=== PATIENT | male | born 1940 | race Caucasian/White ===

== ENCOUNTER 2021-12-21 17:36 | Inpatient (IN) | payer MEDICARE, BC, SELFPAY ==
[2021-12-21 19:41] VITALS: BP 100/55; PULSE 75; RESP 17; TEMP 37.1; O2SAT 97
[2021-12-21 19:50] VITALS: BP 100/55; PULSE 75; RESP 17; TEMP 37.1; O2SAT 97
[2021-12-21] MEDS: Lactated Ringers 1,000 ML 150 ML IV (19:55)
--- NOTE | 2021-12-21 20:28 | HPE_ITS ---
Date of service: 12/21/21 Time of Service: 20:28 Assessment and Plan Assessment and plan (1) Sepsis: Status: Acute Assessment and plan: Patient present with symptoms of systemic infection with rigors and chills and fever of 103 and subsequently had laboratory findings and vital signs consistent with sepsis including tachycardia tachypnea and leukopenia and elevated blood lactate. Presumed source is untreated E. coli UTI exacerbated by instrumentation. Patient seems to be responding to IV fluids antibiotics given to him this afternoon. We will continue high-dose Rocephin 2 g IV daily and continue IV fluids overnight. Repeat his labs in the morning including CMP and CBC. His blood lactate is already down to 2.0. I will repeat his lactate in the morning. I have ordered a procalcitonin level which is pending at this time. I have asked our medical staff to request from [facility] laboratory results of any blood and urine cultures. Qualifiers: Sepsis type: Escherichia coli Sepsis acute organ dysfunction status: with acute organ dysfunction Severe sepsis acute organ dysfunction type: acute renal failure Acute renal failure type: unspecified Severe sepsis shock status: without septic shock Qualified Code(s): A41.51 - Sepsis due to Escherichia coli [E. coli]; R65.20 - Severe sepsis without septic shock; N17.9 - Acute kidney failure, unspecified (2) KENZIE (acute kidney injury): Status: Acute Assessment and plan: Continue IV hydration with lactated Ringer's. Monitor urine output repeat CMP in the morning (3) Neutropenia: Status: Acute Assessment and plan: Secondary to sepsis. Repeat CBC with differential in the morning along with other labs. (4) Gross hematuria: Status: Acute (5) BPH loc w urin obs/LUTS: Status: Acute Assessment and plan: I have held his Flomax for now as his blood pressures have been soft. Once his blood pressures have returned to normal I will reinstitute his Flomax. Upon discharge he should follow-up with his urologist at [facility]. History of Present Illness History of Present Illness Chief Complaint: fever, chills, nausea, hematuria Narrative: 81-year-old male who reportedly has had no significant past medical history but developed UTI symptoms last week including hematuria dysuria and polyuria along with fever and chills. He had been prescribed antibiotics (I believe Cipro) but when he read the potential side effects he decided not to take them. He followed up with a urologist today and underwent cystoscopy at [facility] in [facility]. He was given a dose of ciprofloxacin perioperatively around 11 AM. He went out with his nephew to get some lunch at noon time and became nauseated and vomited and was complaining of fever and rigors. He thought he was having a reaction to the antibiotic and was driven back to the emergency department at [facility] around 1:30 PM. Upon arrival he was febrile with a temperature of 102.2 and tachycardic with a heart rate of 105 bpm and hypertensive with a blood pressure 170/89 with a pulse oximetry of 98%. His fever spiked to 103.3. His blood pressure dropped as low as 100/70 by 4 PM. Per ER notes from [facility] patient's previous urine culture grew E. coli that was pansensitive. Patient was treated with Rocephin 2 g. He was also given 1 L of IV fluids and 1 g of acetaminophen. Work-up included routine labs including blood lactate that was elevated at 6, urinalysis that demonstrated specific gravity of 1.020 and greater than 3 mg/dL protein large amount of blood positive for nitrites small amount leukocyte esterase 10-20 white cells and 2+ bacteria. CBC demonstrated neutropenia with a total white cell count of 1180 and an ANC of 960. No anemia. Platelet count 172,000. Electrolytes were normal but creatinine is elevated 1.35 anion gap 15.7. LFTs with slightly elevated total bilirubin 1.5 AST ALT and alkaline phosphatase all normal. Chest x-ray was done showed no acute findings. [facility] had no capacity for admission and apparently there fellow hospitals in their [facility] also had no capacity. The ER attending Dr. Briceño spoke with our hospitalist Dr. Sandra who accepted the patient for hospitalization. The time of transfer at 1753 his vital signs had stabilized with a blood pressure 108/74 and a heart rate of 91 and oxygen saturation 98%. He was no longer having rigors as mental status is improved. He is now admitted to [facility] to the medical/surgical floor for treatment of urosepsis. We will continue high-dose Rocephin 2 g IV daily pending the results of his blood and urine cultures. [facility] All Active Problems (Updated 12/21/21 @ 21:50 by Pawel Augustin) KENZIE (acute kidney injury) (Acute) Neutropenia (Acute) Sepsis (Acute) Gross hematuria (Acute) BPH loc w urin obs/LUTS (Acute) Medical History (Updated 12/21/21 @ 21:50 by Pawel Augustin) 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 Surgical History (Updated 12/21/21 @ 21:42 by Pawel Augustin) History of local excision of skin lesion (~04/11/21) Left shoulder, basal cell Family History (Updated 12/21/21 @ 21:43 by Pawel Augustin) Brother , secondary to heart attack Heart disease Social History (Updated 12/21/21 @ 21:45 by Pawel Augustin) Smoking/Tobacco Use Status: Never Smoking risk assessment performed?: Yes Alcohol Intake: former Drug use: Never Substance use type: does not use Household members: none current occupation: Retired from [employer], from [employer] [id number] Meds Allergies and Home Medications Allergies Allergy/AdvReac Type Severity Reaction Status Date / Time No Known Allergies Allergy Unverified 12/21/21 19:17 Home Medications Medication Instructions Recorded Confirmed Type ciprofloxacin HCl 500 mg tablet 500 mg PO BID 12/21/21 12/21/21 History tamsulosin 0.4 mg capsule 0.4 mg PO DAILY 12/21/21 12/21/21 History Exam Narrative Exam Narrative: Elderly white male sitting up in his bed eating his dinner watching TV alert and oriented person place time circumstance. HEENT is unremarkable. Neck is supple nontender no JVD no cervical adenopathy normal carotid pulses no bruits Lungs are clear to auscultation Heart regular rate and rhythm without murmur rub or gallop Abdomen soft nontender nondistended normal bowel sounds no organomegaly no bruits No flank tenderness to palpation or percussion No suprapubic tenderness. Lower extremities without peripheral cyanosis or edema normal pedal pulses Neuro exam grossly intact no focal cranial nerve or motor or sensory deficits Rectal exam deferred. Patient states that he had this done earlier today by the urologist would prefer not to have this repeated. Results Imaging Chest x-ray: report reviewed Additional studies: Lab work from [facility] was reviewed Last Vital Signs Temp 37.1 C 12/21/21 19:50 Pulse 75 12/21/21 19:50 Resp 17 12/21/21 19:50 BP 100/55 L 12/21/21 19:50 Pulse Ox 97 12/21/21 19:50
[2021-12-21] MEDS: Enoxaparin 40 MG/0.4 ML SYR SC (21:26)
[2021-12-21 21:49] LABS: Procalcitonin > 190.0 ng/mL
[2021-12-21 22:53] LABS: Anion Gap 9.8 mmol/L (3-11); BUN 20 mg/dL (7-18); CO2 23.2 mmol/L (21.0-32.0); CREATININE 2.2 mg/dL (0.70-1.30); Calcium 8.3 mg/dL (8.5-10.1); Chloride 105 mmol/L (98-107); Estimated GFR 28.87 (mL/min/1.73m2); Glucose 139 mg/dL (74-106); Potassium 3.3 mmol/L (3.5-5.1); Sodium 138 mmol/L (136-145)
[2021-12-21 23:28] LABS: Lactate 3.8 mmol/L (0.6-1.4)
[2021-12-21 23:39] VITALS: BP 93/57; PULSE 68; RESP 19; TEMP 36.8; O2SAT 97
[2021-12-22] VITALS (7 sets, daily range): BP systolic 96–117; BP diastolic 50–63; PULSE 67–73; RESP 16–18; TEMP 36.4–37.2; O2SAT 96–99
[2021-12-22] MEDS: Lactated Ringers 1,000 ML 150 ML IV ×3 (01:59→21:52)
[2021-12-22 06:04] LABS: Abs Immature Grans 0.45 10^3/uL (0.0-0.06); Basophils % 0.5; HCT 30.2 % (40.0-50.0); HGB 10.4 g/dL (13.5-17.5); Lactate 2.1 mmol/L (0.6-1.4); MCHC 34.4 % (32.0-36.0); MCV 90.1 fL (80-95); MPV 9.2 fL (8.0-11.0); Nucleated RBC 0 %; Platelet Count 122 10^3/uL (130-400); RBC 3.35 10^6/uL (4.36-5.78); RDW-SD 42.7 fL; WBC 23.88 10^3/uL (4.4-10.8)
[2021-12-22 06:30] LABS: ALT 54 U/L (16-63); AST 57 U/L (15-37); Albumin 2.6 g/dL (3.4-5.0); Alkaline Phosphatase 51 U/L (46-116); Anion Gap 8.3 mmol/L (3-11); BUN 27 mg/dL (7-18); Bilirubin, Total 1.1 mg/dL (0.2-1.0); CO2 24.7 mmol/L (21.0-32.0); CREATININE 2.3 mg/dL (0.70-1.30); Calcium 7.9 mg/dL (8.5-10.1); Chloride 104 mmol/L (98-107); Estimated GFR 27.43 (mL/min/1.73m2); Glucose 88 mg/dL (74-106); Magnesium 1.4 mg/dL (1.8-2.4); Potassium 3.7 mmol/L (3.5-5.1); Sodium 137 mmol/L (136-145); Total Protein 5.3 g/dL (6.4-8.2)
[2021-12-22 06:32] LABS: Absolute Basophil Count 0.12 10^3/uL (0.0-0.2)
[2021-12-22 06:45] LABS: Absolute Lymphocyte Count 0.96 10^3/uL (1.2-3.4); Absolute Monocyte Count 1.19 10^3/uL (0.1-0.8); Absolute Neutrophil Count 20.06 10^3/uL (1.2-6.7); Bands % 11; Diff Comment Manual Differential; Metamyelocytes % 7; RBC Morphology Normal
[2021-12-22] MEDS: cefTRIAXone 2 GM/50 ML BAG IVPB (07:49)
[2021-12-22] MEDS: VANCOMYCIN/WATER (PEG) 1 GM/200 ML BAG IVPB (09:47)
[2021-12-22] MEDS: MAGNESIUM SULFATE 4 GM/100 ML BAG IVPB (09:47)
--- NOTE | 2021-12-22 09:56 | PDOC.CMIN ---
- If Service Date Differs Date of service: 12/22/21 Time of Service: 09:57 Care Management Initial Assess REASON FOR HOSPITALIZATION:: urosepsis PAST MEDICAL HISTORY/PAST SURGICAL HISTORY:: All Active Problems. KENZIE (acute kidney injury) (Acute). Neutropenia (Acute). Sepsis (Acute). Gross hematuria (Acute). BPH loc w urin obs/LUTS (Acute). Medical History. 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. Surgical History. History of local excision of skin lesion (~04/11/21). Left shoulder, basal cell PREVIOUS FUNCTIONAL STATUS/SOCIAL/FAMILY SUPPORTS:: Isak lives in [place], alone. His nephew, Jabier, is supportive and lives nearby. He is retired from [employer]. He is independent at baseline. CURRENT FUNCTIONAL STATUS:: Gene was sitting up in his chair when CM met with him. He stated that this is the first time anything like this has ever happened to him. He reported that he has never felt that he needed to have a 'regular' doctor. He stated that he talked to his nephew, who is his closest support, and they are planning to get together and take care of his legal matters, such as HCA/DPOA, living will, and setting up a PCP. He stated that Jabier is very helpful with these things, as Gene doesn't like paperwork. He reported that he never had children, as planned, but that he is grateful of Jabier for helping him when he needs it. He describes himself as being very independent, and is not expecting to require additional support upon discharge. Per report, awaiting culture results in order to determine his hospital course as well as his antibiotic course. PT has been consulted, although Gene states that he is very active at baseline. CM will continue to follow. ADVANCE DIRECTIVES:: None on file, CM will offer forms. Has patient been provided with info about the portal/API?: Yes Did the patient sign up for the portal?: No CODE STATUS:: DNR/DNI INSURANCE COVERAGE / FINANCIAL ISSUES:: SAKSHI/ MEAGAN Kline CURRENT HOME/COMMUNITY SERVICES/EQUIPMENT:: No current services or equipment. PRIMARY CARE PHYSICIAN:: No PCP, CM discussed this with Gene, and he reported that he has never felt that he needed a regular doctor. CM will attemtp to set up an appointment with the Tdoc on the date that he arrived at [facility]- although he arrived as a transfer. POTENTIAL DISCHARGE NEEDS:: Evaluations for further needs, follow up appointments. PATIENT/FAMILY EDUCATION NEEDS:: Review discharge instructions regarding activity levels and medications, discussion of self care needs including ask me three. ANTICIPATED BARRIERS TO DISCHARGE:: None identified at this time. TRANSPORTATION:: Via private vehicle by his nephew. PLAN:: Anticipate Isak will return home once medically cleared by MD. His nephew will drive him home via private vehicle. He will follow up with his PCP and discharge plan of care. CM will continue to follow.
--- NOTE | 2021-12-22 12:13 | W.PM.PROGNOT ---
Date of Service Date of service: 12/22/21 Time of Service: 12:13 Assessment and Plan Assessment and plan (1) Sepsis: Status: Acute Assessment and plan: given instrumentation yesterday, I added vancomycin to high dose ceftriaxone. Continue trending lactates. Await blood and urine cultures. BP borderline low - continue IVF for now. Qualifiers: Sepsis type: Escherichia coli Sepsis acute organ dysfunction status: with acute organ dysfunction Severe sepsis acute organ dysfunction type: acute renal failure Acute renal failure type: unspecified Severe sepsis shock status: without septic shock Qualified Code(s): A41.51 - Sepsis due to Escherichia coli [E. coli]; R65.20 - Severe sepsis without septic shock; N17.9 - Acute kidney failure, unspecified (2) UTI (urinary tract infection): Status: Acute Assessment and plan: As above (3) Urinary retention: Status: Acute Assessment and plan: As above (4) Gross hematuria: Status: Acute Assessment and plan: Clinically appears to have resolved. Will monitor. (5) BPH loc w urin obs/LUTS: Status: Acute Assessment and plan: Will monitor for urinary retention with PVRs. Holding flomax due to low BPs. (6) KENZIE (acute kidney injury): Status: Acute Assessment and plan: As above - continue IVF. (7) Neutropenia: Status: Resolved Assessment and plan: The patient has neutrophilia at this point. I do suspect that this was acute sepsis related. (8) DVT prophylaxis: Status: Acute Assessment and plan: renally dosed lovenox (9) Discharge planning issues: Status: Acute Assessment and plan: DNR/DNI Continues to require hospitalization Subjective Subjective Interval history since last seen: Feels a lot better. Denies dizziness, chest pain, shortness of breath, nausea. Denies having difficulty initiating urinary stream. Report from cystoscopy: large urinary residiual noted. VT today. Exam Narrative Exam Narrative: General: Pleasant elderly male who appears younger than his stated age, A&Ox3, NAD HEENT: EOMI, MMM Heart: RRR, no m/r/g Lungs: CTAB Abdomen: soft, nondistended Extremities: +1 BLE edema, symmetric Objective Last Vital Signs Temp 37.0 C 12/22/21 12:07 Pulse 72 12/22/21 12:07 Resp 17 12/22/21 12:07 BP 96/50 L 12/22/21 12:07 Pulse Ox 99 12/22/21 12:07 Laboratory Results - last 24 hr 12/21/21 12/21/21 12/21/21 20:45 22:40 23:24 WBC RBC Hgb Hct MCV MCH MCHC RDW Plt Count MPV Immature Gran % Neutrophils % Band Neutrophils % Lymphocytes % Monocytes % Eosinophils % Basophils % Metamyelocytes % Nucleated RBC % Absolute Neutrophils Absolute Lymphocytes Absolute Monocytes Absolute Eosinophils Absolute Basophils RBC Morphology VBG Lactate 2.0 H 3.8 H* Sodium 138 Potassium 3.3 L Chloride 105 Carbon Dioxide 23.2 Anion Gap 9.8 BUN 20 H Creatinine 2.2 H Estimated GFR/1.73 m2 28.87 Glucose 139 H Calcium 8.3 L Magnesium Total Bilirubin AST ALT Alkaline Phosphatase Total Protein Albumin Procalcitonin > 190.0 12/22/21 12/22/21 12/22/21 05:51 05:51 05:51 WBC 23.88 H RBC 3.35 L Hgb 10.4 L Hct 30.2 L MCV 90.1 MCH 31.0 MCHC 34.4 RDW 13.0 Plt Count 122 L MPV 9.2 Immature Gran % See Differential Neutrophils % 73.0 Band Neutrophils % 11 Lymphocytes % 4.0 Monocytes % 5.0 Eosinophils % 0.0 Basophils % 0.5 Metamyelocytes % 7 Nucleated RBC % 0 Absolute Neutrophils 20.06 H Absolute Lymphocytes 0.96 L Absolute Monocytes 1.19 H Absolute Eosinophils 0.00 Absolute Basophils 0.12 RBC Morphology Normal VBG Lactate 2.1 H Sodium 137 Potassium 3.7 Chloride 104 Carbon Dioxide 24.7 Anion Gap 8.3 BUN 27 H Creatinine 2.3 H Estimated GFR/1.73 m2 27.43 Glucose 88 D Calcium 7.9 L Magnesium 1.4 L Total Bilirubin 1.1 H AST 57 H ALT 54 Alkaline Phosphatase 51 Total Protein 5.3 L Albumin 2.6 L Procalcitonin
[2021-12-22 12:30] LABS: Lactate 1.9 mmol/L (0.6-1.4)
--- NOTE | 2021-12-22 18:34 | NUR.NOTE ---
Nursing Note: Patient was far more calm and comfortable than earlier today, Discussed ongoing plan of care with him, and how the ABX treatment will help him if it is allowed to run its course. patient was in agreement with POC
[2021-12-22] MEDS: Enoxaparin 30 MG/0.3 ML SYR SC (19:36)
[2021-12-23 03:18] VITALS: BP 115/61; PULSE 70; RESP 18; TEMP 36.6; O2SAT 98
[2021-12-23] MEDS: Lactated Ringers 1,000 ML 150 ML IV (04:17)
[2021-12-23 06:41] LABS: HCT 30.8 % (40.0-50.0); HGB 10.7 g/dL (13.5-17.5); MCH 30.9 pg (27.0-33.0); MCHC 34.7 % (32.0-36.0); MPV 10.1 fL (8.0-11.0); Nucleated RBC 0 %; RBC 3.46 10^6/uL (4.36-5.78); RDW 13.1 % (11.8-14.1); RDW-SD 42.1 fL; WBC 23.83 10^3/uL (4.4-10.8)
[2021-12-23 06:56] LABS: Anion Gap 8.8 mmol/L (3-11); BUN 36 mg/dL (7-18); C-Reactive Protein 16.37 mg/dL (0.0-0.3); CO2 24.2 mmol/L (21.0-32.0); CREATININE 1.6 mg/dL (0.70-1.30); Calcium 8.5 mg/dL (8.5-10.1); Chloride 104 mmol/L (98-107); Estimated GFR 41.69 (mL/min/1.73m2); Glucose 88 mg/dL (74-106); Magnesium 2.7 mg/dL (1.8-2.4); Potassium 3.8 mmol/L (3.5-5.1); Sodium 137 mmol/L (136-145)
[2021-12-23 07:12] LABS: Platelet Count 140 10^3/uL (130-400)
[2021-12-23 07:13] LABS: Absolute Basophil Count 0.48 10^3/uL (0.0-0.2); Absolute Eosinophil Count 0.48 10^3/uL (0.0-0.7); Absolute Lymphocyte Count 0.95 10^3/uL (1.2-3.4); Absolute Monocyte Count 0.71 10^3/uL (0.1-0.8); Absolute Neutrophil Count 20.49 10^3/uL (1.2-6.7); Bands % 9; Diff Comment Manual Differential; Metamyelocytes % 3
[2021-12-23 07:14] LABS: Polychromasia Present
[2021-12-23 07:47] VITALS: BP 117/65; PULSE 72; RESP 16; TEMP 36.5; O2SAT 98
[2021-12-23] MEDS: VANCOMYCIN/WATER (PEG) 1 GM/200 ML BAG IV (09:34)
[2021-12-23] MEDS: cefTRIAXone 2 GM/50 ML BAG IVPB (09:34)
[2021-12-23 11:45] LABS: Bilirubin Negative (Negative); Blood Large (Negative); Clarity Sl Cloudy (Clear); Glucose Negative (Negative); Ketones Negative (Negative); Leukocyte Esterase Negative (Negative); Nitrite Negative (Negative); Urobilinogen 0.2 EU/dL (Up TO 0.2); pH 5.5 (5-8)
[2021-12-23 11:52] VITALS: BP 150/70; PULSE 65; RESP 16; TEMP 36.1; O2SAT 99
[2021-12-23 11:55] LABS: Bacteria Few HPF (Negative); C & S Indicated? Yes; Casts 0-2 Coarse Granular LPF (Negative); Crystals Rare Amorphous HPF (Negative); Epithelial Cells Rare HPF (Negative); Mucus Trace (Negative); WBC 0-2 HPF (0-5)
[2021-12-23 15:12] VITALS: BP 147/75; PULSE 69; RESP 18; TEMP 36.5; O2SAT 96
--- NOTE | 2021-12-23 18:00 | PGE_ITS ---
Date of Service Date of service: 12/23/21 Time of Service: 18:00 Assessment and Plan Assessment and plan (1) Sepsis: Status: Acute Assessment and plan: Continue vanco/ceftriaxone. Cx from [facility]: blood cx NGTD, urine C&S was contaminated. Urine recultured today while on antibiotics. Leucocytosis not improving. If persistently high, would consider changing abx tomorrow. Qualifiers: Sepsis type: Escherichia coli Sepsis acute organ dysfunction status: with acute organ dysfunction Severe sepsis acute organ dysfunction type: acute renal failure Acute renal failure type: unspecified Severe sepsis shock status: without septic shock Qualified Code(s): A41.51 - Sepsis due to Escherichia coli [E. coli]; R65.20 - Severe sepsis without septic shock; N17.9 - Acute kidney failure, unspecified (2) UTI (urinary tract infection): Status: Acute Assessment and plan: As above (3) Urinary retention: Status: Acute Assessment and plan: As above Passed VT. Resume flomax for LUTS. (4) Gross hematuria: Status: Acute Assessment and plan: Clinically appears to have resolved. Will monitor. (5) BPH loc w urin obs/LUTS: Status: Acute Assessment and plan: Resume flomax. Passed VT. (6) KENZIE (acute kidney injury): Status: Acute Assessment and plan: Improved. D/c IVF. Continue to monitor Cr. (7) Neutropenia: Status: Resolved Assessment and plan: The patient has neutrophilia at this point. I do suspect that this was acute sepsis related. (8) DVT prophylaxis: Status: Acute Assessment and plan: renally dosed lovenox (9) Discharge planning issues: Status: Acute Assessment and plan: DNR/DNI Continues to require hospitalization Subjective Subjective Interval history since last seen: Mr Lamar reports that he is again having frequency/urgency with urination, but no dysuria. He had not had these sx until now since his hospitalization. He had these sx a week ago, he says. He is not retaining urine by bladder scans. Denies dizziness, chest pain, shortness of breath, nausea. Exam Narrative Exam Narrative: General: Pleasant elderly male who appears younger than his stated age, A&Ox3, NAD HEENT: EOMI, MMM Heart: RRR, no m/r/g Lungs: CTAB Abdomen: soft, nondistended Extremities: +1 BLE edema in TEDs, improved from yesterday, symmetric Objective Last Vital Signs Temp 36.5 C 12/23/21 15:12 Pulse 69 12/23/21 15:12 Resp 18 12/23/21 15:12 BP 147/75 H 12/23/21 15:12 Pulse Ox 96 12/23/21 15:12 Laboratory Results - last 24 hr 12/23/21 12/23/21 12/23/21 06:15 06:15 11:00 WBC 23.83 H RBC 3.46 L Hgb 10.7 L Hct 30.8 L MCV 89.0 MCH 30.9 MCHC 34.7 RDW 13.1 Plt Count 140 MPV 10.1 Immature Gran % See Differential Neutrophils % 77.0 Band Neutrophils % 9 Lymphocytes % 4.0 Monocytes % 3.0 Eosinophils % 2.0 Basophils % 2.0 Metamyelocytes % 3 Nucleated RBC % 0 Absolute Neutrophils 20.49 H Absolute Lymphocytes 0.95 L Absolute Monocytes 0.71 Absolute Eosinophils 0.48 Absolute Basophils 0.48 H RBC Morphology See Below Polychromasia Present Sodium 137 Potassium 3.8 Chloride 104 Carbon Dioxide 24.2 Anion Gap 8.8 BUN 36 H D Creatinine 1.6 H D Estimated GFR/1.73 m2 41.69 Glucose 88 Calcium 8.5 Magnesium 2.7 H C-Reactive Protein 16.37 H Urine Color Yellow Urine Clarity Sl Cloudy Urine pH 5.5 Ur Specific [place] 1.020 Urine Protein 30 H Urine Ketones Negative Urine Blood Large H Urine Nitrite Negative Urine Bilirubin Negative Urine Urobilinogen 0.2 Ur Leukocyte Esterase Negative Urine RBC 10-20 H Urine WBC 0-2 Ur Epithelial Cells Rare Urine Crystals Rare Amorphous Urine Bacteria Few Urine Casts 0-2 Coarse Granular Urine Mucus Trace Ur Culture Indicated? Yes Urine Glucose Negative
[2021-12-23] MEDS: Tamsulosin 0.4 MG CAPCR PO (18:49)
[2021-12-23 19:15] VITALS: BP 163/90; PULSE 77; RESP 16; TEMP 37; O2SAT 97
[2021-12-23] MEDS: Enoxaparin 30 MG/0.3 ML SYR SC (20:09)
[2021-12-23 22:21] VITALS: BP 179/91; PULSE 81; RESP 22; TEMP 36.8; O2SAT 99
--- NOTE | 2021-12-24 | DI.US_ITS ---
Exam(s) US EXTREMITY VENOUS BI EXAM: US EXTREMITY VENOUS BI CLINICAL HISTORY: BLE edema. TECHNIQUE: Bilateral lower extremity venous ultrasound performed using grayscale, color-flow, and sp ectral Doppler analysis. COMPARISON: No exams were available for comparison FINDINGS: The bilateral common femoral, femoral and popliteal veins demonstrate normal compressibility, augment ation, and color Doppler. The posterior tibial veins are patent. There is a right-sided Cole's cyst measuring 3.5 x 1.6 x 1.8 cm. No left-sided Cole's cyst is seen. IMPRESSION: Right: Negative for DVT. Small Cole's cyst. Left: Negative for DVT DATA REPOSITORY:
--- NOTE | 2021-12-24 | DI.US_ITS ---
Exam(s) US RENAL EXAM: US RENAL CLINICAL HISTORY: UTI, ?bladder mass. TECHNIQUE: Hardy scale, color and spectral Doppler were used. COMPARISON: No exams were available for comparison FINDINGS: Renal size in cm: Right: 9.7 left: 11.0 Echogenicity: Normal Hydronephrosis: No Cyst or mass: No Nephrolithiasis: No Bladder:Wall thickening. Bladder trabeculation as well as multiple small diverticula. Ureteral jet s not visualized. No bladder mass identified. Prevoid vol:246 cc Postvoid vol:Unable to void Prostate markedly enlarged with volume of 85 cc impressing on inferior bladder. IMPRESSION: Markedly enlarged prostate. Thickened trabeculated bladder wall with multiple small diverticula. DATA REPOSITORY:
[2021-12-24] MEDS: VANCOMYCIN/WATER (PEG) 1 GM/200 ML BAG IV ×2 (02:46→16:25)
[2021-12-24 03:38] VITALS: BP 165/90; PULSE 82; RESP 20; TEMP 36.4; O2SAT 97
[2021-12-24 07:15] LABS: HCT 31.8 % (40.0-50.0); MCH 31.8 pg (27.0-33.0); MCHC 34.6 % (32.0-36.0); MCV 91.9 fL (80-95); Nucleated RBC 0 %; Platelet Count 133 10^3/uL (130-400); RBC 3.46 10^6/uL (4.36-5.78); RDW-SD 43.1 fL; WBC 16.47 10^3/uL (4.4-10.8)
[2021-12-24 07:34] LABS: ALT 32 U/L (16-63); AST 23 U/L (15-37); Albumin 2.6 g/dL (3.4-5.0); Alkaline Phosphatase 61 U/L (46-116); Anion Gap 10.4 mmol/L (3-11); BUN 30 mg/dL (7-18); Bilirubin, Direct 0.2 mg/dL (0.0-0.2); Bilirubin, Total 0.7 mg/dL (0.2-1.0); C-Reactive Protein 8.93 mg/dL (0.0-0.3); CO2 23.6 mmol/L (21.0-32.0); CREATININE 1.3 mg/dL (0.70-1.30); Calcium 8.6 mg/dL (8.5-10.1); Chloride 107 mmol/L (98-107); Estimated GFR 52.98 (mL/min/1.73m2); Glucose 86 mg/dL (74-106); Magnesium 2.5 mg/dL (1.8-2.4); Potassium 3.7 mmol/L (3.5-5.1); Sodium 141 mmol/L (136-145)
[2021-12-24 07:49] VITALS: BP 141/84; PULSE 65; RESP 17; TEMP 36.2; O2SAT 97
[2021-12-24 07:50] LABS: Absolute Lymphocyte Count 0.49 10^3/uL (1.2-3.4); Absolute Monocyte Count 0.49 10^3/uL (0.1-0.8); Absolute Neutrophil Count 15.48 10^3/uL (1.2-6.7); Bands % 7; Diff Comment Manual Differential; RBC Morphology Normal
[2021-12-24] MEDS: cefTRIAXone 2 GM/50 ML BAG IVPB (07:55)
[2021-12-24] MEDS: Tamsulosin 0.4 MG CAPCR PO (07:56)
[2021-12-24 08:15] LABS: Procalcitonin 66.3 ng/mL
--- NOTE | 2021-12-24 11:37 | PGE_ITS ---
Date of Service Date of service: 12/24/21 Time of Service: 11:37 Assessment and Plan Assessment and plan (1) Sepsis: Status: Acute Assessment and plan: Continue vanco/ceftriaxone. Will check MRSA screen, but I am inclined to keep both antibiotics going at this time due to recent instrumentation, extremely elevated procalcitonin, leucocytosis. WBC better. Procalcitonin is 66.3, down from >190 on 12/21/21. It is still rather impressive. Cx from [facility]: blood cx NGTD, urine C&S was contaminated. Urine culture done here yesterday while on antibiotics is pending. Qualifiers: Sepsis type: Escherichia coli Sepsis acute organ dysfunction status: with acute organ dysfunction Severe sepsis acute organ dysfunction type: acute renal failure Acute renal failure type: unspecified Severe sepsis shock status: without septic shock Qualified Code(s): A41.51 - Sepsis due to Escherichia coli [E. coli]; R65.20 - Severe sepsis without septic shock; N17.9 - Acute kidney failure, unspecified (2) UTI (urinary tract infection): Status: Acute Assessment and plan: As above (3) Urinary retention: Status: Acute Assessment and plan: As above Did require a straight cath last night due to urinary retention of 400 cc with discomfort. US with prostatomegaly and multiple bladder diverticula. Urology consulted. Continue flomax. (4) Gross hematuria: Status: Acute Assessment and plan: Clinically appears to have resolved. Will monitor. (5) BPH loc w urin obs/LUTS: Status: Acute Assessment and plan: As above. on flomax. Retaining urine. Urology consulted. (6) KENZIE (acute kidney injury): Status: Resolved Assessment and plan: No hydronephrosis on US. Doing well off of IVF. Will monitor now that he will receive a dose of IV lasix for his LE edema. (7) Neutropenia: Status: Resolved Assessment and plan: The patient has neutrophilia at this point. I do suspect that this was acute sepsis related. (8) DVT prophylaxis: Status: Acute Assessment and plan: lovenox (9) Discharge planning issues: Status: Acute Assessment and plan: DNR/DNI Continues to require hospitalization Subjective Subjective Interval history since last seen: MR Lamar retained 400 cc of urine on his PVR last night and required a straight catheter. He no longer reports frequency/urgency today. Denies dizziness, chest pain, shortness of breath, nausea. Exam Narrative Exam Narrative: General: Pleasant mildly anxious and forgetful elderly male who appears younger than his stated age, A&Ox3, NAD HEENT: EOMI, MMM Heart: RRR, no m/r/g Lungs: CTAB Abdomen: soft, nondistended Extremities: +1 BLE edema in TEDs, no change from yesterday Objective Last Vital Signs Temp 36.2 C L 12/24/21 07:49 Pulse 65 12/24/21 07:49 Resp 17 12/24/21 07:49 BP 141/84 H 12/24/21 07:49 Pulse Ox 97 12/24/21 07:49 Laboratory Results - last 24 hr 12/23/21 12/24/21 12/24/21 11:00 06:50 06:56 WBC RBC Hgb Hct MCV MCH MCHC RDW Plt Count MPV Immature Gran % Neutrophils % Band Neutrophils % Lymphocytes % Monocytes % Eosinophils % Basophils % Nucleated RBC % Absolute Neutrophils Absolute Lymphocytes Absolute Monocytes Absolute Eosinophils Absolute Basophils RBC Morphology Sodium 141 Potassium 3.7 Chloride 107 Carbon Dioxide 23.6 Anion Gap 10.4 BUN 30 H Creatinine 1.3 Estimated GFR/1.73 m2 52.98 Glucose 86 Calcium 8.6 Magnesium 2.5 H Total Bilirubin 0.7 Conjugated Bilirubin 0.2 AST 23 ALT 32 Alkaline Phosphatase 61 C-Reactive Protein 8.93 H Total Protein 6.0 L Albumin 2.6 L Procalcitonin 66.3 Urine Color Yellow Urine Clarity Sl Cloudy Urine pH 5.5 Ur Specific [place] 1.020 Urine Protein 30 H Urine Ketones Negative Urine Blood Large H Urine Nitrite Negative Urine Bilirubin Negative Urine Urobilinogen 0.2 Ur Leukocyte Esterase Negative Urine RBC 10-20 H Urine WBC 0-2 Ur Epithelial Cells Rare Urine Crystals Rare Amorphous Urine Bacteria Few Urine Casts 0-2 Coarse Granular Urine Mucus Trace Ur Culture Indicated? Yes Urine Glucose Negative 12/24/21 06:56 WBC 16.47 H D RBC 3.46 L Hgb 11.0 L Hct 31.8 L MCV 91.9 MCH 31.8 MCHC 34.6 RDW 13.0 Plt Count 133 MPV 10.0 Immature Gran % 0.0 Neutrophils % 87.0 Band Neutrophils % 7 Lymphocytes % 3.0 Monocytes % 3.0 Eosinophils % 0.0 Basophils % 0.0 Nucleated RBC % 0 Absolute Neutrophils 15.48 H Absolute Lymphocytes 0.49 L Absolute Monocytes 0.49 Absolute Eosinophils 0.00 Absolute Basophils 0.00 RBC Morphology Normal Sodium Potassium Chloride Carbon Dioxide Anion Gap BUN Creatinine Estimated GFR/1.73 m2 Glucose Calcium Magnesium Total Bilirubin Conjugated Bilirubin AST ALT Alkaline Phosphatase C-Reactive Protein Total Protein Albumin Procalcitonin Urine Color Urine Clarity Urine pH Ur Specific [place] Urine Protein Urine Ketones Urine Blood Urine Nitrite Urine Bilirubin Urine Urobilinogen Ur Leukocyte Esterase Urine RBC Urine WBC Ur Epithelial Cells Urine Crystals Urine Bacteria Urine Casts Urine Mucus Ur Culture Indicated? Urine Glucose Objective Narrative Objective Narrative: US renal/bladder: Markedly enlarged prostate.? Thickened trabeculated bladder wall with multiple small diverticula.
--- NOTE | 2021-12-24 11:43 | UCONE_ITS ---
Date of service: 12/24/21 Time of Service: 11:44 Assessment and Plan Assessment and plan (1) Gross hematuria: Status: Acute (2) UTI (urinary tract infection): Status: Acute Assessment and plan: He is improving with antibiotics. Once his course of antibiotic is nearing the end, I would suggest finishing his hematuria work-up. This would include a cystoscopy with bilateral retrograde pyelogram. At our facility, we would perform such a study in the operating room with anesthesia on board. If the patient prefers, he can complete his work-up with his urologist at [facility] after discharge. History of Present Illness History of Present Illness Chief Complaint: Hematuria Narrative: This is an 81-year-old gentleman who [facility] an acute onset of urinary frequency, gross hematuria and chills. He was diagnosed with an E. coli urinary tract infection. A combination of antibiotics and tamsulosin was prescribed. Once the patient read the potential side effects, he took neither of these medications. It sounds as if he was referred to a urologist there at [facility]. I do not have access to any office note, but I do have access to a cystoscopy report. A local cystoscopy was done there in the office. Based on the reported findings, visualization was poor as it was quite uncomfortable for the patient. The patient apparently returned within 24 hours with signs and symptoms of sepsis. Since no beds were available at [facility], he was transferred here for further care. Since his arrival to our hospital, he has been receiving IV antibiotics. He has been started on tamsulosin. We have been monitoring his PVR with bladder scan and performing CIC when needed. Based on the cystoscopy report, it sounds as if recommendations were made for a CT urogram and a urine cytology. There was also consideration of cystoscopy under sedation. None of these have been accomplished. Prior to this episode, he does not have any recollection of a urinary tract infection. He has no history of urinary retention. He has no history of kidney stones or urologic surgery. He is not a smoker. Review of Systems Narrative: No fevers or chills No vision change or dysphasia No diabetes or thyroid No shortness of breath, cough or hemoptysis No chest pain or palpitations No nausea, vomiting, hepatitis, ulcers, jaundice No seizures, strokes or peripheral neuropathy No bleeding disorders or anemia No gout PFSH All Active Problems (Updated 03/07/22 @ 11:44 by Phyllis Haro MD) Discharge planning issues (Acute) DVT prophylaxis (Acute) Urinary retention (Acute) UTI (urinary tract infection) (Acute) Sepsis (Acute) Gross hematuria (Acute) BPH loc w urin obs/LUTS (Acute) Medical History (Updated 12/24/21 @ 11:44 by Phyllis Haro MD) 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 Surgical History (Updated 12/21/21 @ 21:42 by Pawel Augustin) History of local excision of skin lesion (~04/11/21) Left shoulder, basal cell Family History (Updated 12/21/21 @ 21:43 by Pawel Augustin) Brother , secondary to heart attack Heart disease Social History (Updated 12/21/21 @ 21:45 by Pawel Augustin) Smoking/Tobacco Use Status: Never Smoking risk assessment performed?: Yes Alcohol Intake: former Drug use: Never Substance use type: does not use Household members: none current occupation: Retired from [employer], from [employer] [id number] Exam Narrative Exam Narrative: He is a pleasant gentleman sitting at his bedside. He is cooperative. His vital signs are documented elsewhere His chest wall motion is normal. He is not short of breath at rest. There is no CVA tenderness His abdomen is soft with no mass He is awake and alert I reviewed his renal ultrasound on the PACS system. I do not see any evidence of renal mass or hydronephrosis. His prostate is quite enlarged and compresses on the base of the bladder. I do not see any stones in the bladder. Results Last Vital Signs Temp 36.2 C L 12/24/21 07:49 Pulse 65 12/24/21 07:49 Resp 17 12/24/21 07:49 BP 141/84 H 12/24/21 07:49 Pulse Ox 97 12/24/21 07:49 Labs Result diagrams: 12/24/21 06:56 12/24/21 06:56 Labs: Laboratory Results - last 24 hr 12/23/21 12/24/21 12/24/21 11:00 06:50 06:56 WBC RBC Hgb Hct MCV MCH MCHC RDW Plt Count MPV Immature Gran % Neutrophils % Band Neutrophils % Lymphocytes % Monocytes % Eosinophils % Basophils % Nucleated RBC % Absolute Neutrophils Absolute Lymphocytes Absolute Monocytes Absolute Eosinophils Absolute Basophils RBC Morphology Sodium 141 Potassium 3.7 Chloride 107 Carbon Dioxide 23.6 Anion Gap 10.4 BUN 30 H Creatinine 1.3 Estimated GFR/1.73 m2 52.98 Glucose 86 Calcium 8.6 Magnesium 2.5 H Total Bilirubin 0.7 Conjugated Bilirubin 0.2 AST 23 ALT 32 Alkaline Phosphatase 61 C-Reactive Protein 8.93 H Total Protein 6.0 L Albumin 2.6 L Procalcitonin 66.3 Urine Color Yellow Urine Clarity Sl Cloudy Urine pH 5.5 Ur Specific [place] 1.020 Urine Protein 30 H Urine Ketones Negative Urine Blood Large H Urine Nitrite Negative Urine Bilirubin Negative Urine Urobilinogen 0.2 Ur Leukocyte Esterase Negative Urine RBC 10-20 H Urine WBC 0-2 Ur Epithelial Cells Rare Urine Crystals Rare Amorphous Urine Bacteria Few Urine Casts 0-2 Coarse Granular Urine Mucus Trace Ur Culture Indicated? Yes Urine Glucose Negative 12/24/21 06:56 WBC 16.47 H D RBC 3.46 L Hgb 11.0 L Hct 31.8 L MCV 91.9 MCH 31.8 MCHC 34.6 RDW 13.0 Plt Count 133 MPV 10.0 Immature Gran % 0.0 Neutrophils % 87.0 Band Neutrophils % 7 Lymphocytes % 3.0 Monocytes % 3.0 Eosinophils % 0.0 Basophils % 0.0 Nucleated RBC % 0 Absolute Neutrophils 15.48 H Absolute Lymphocytes 0.49 L Absolute Monocytes 0.49 Absolute Eosinophils 0.00 Absolute Basophils 0.00 RBC Morphology Normal Sodium Potassium Chloride Carbon Dioxide Anion Gap BUN Creatinine Estimated GFR/1.73 m2 Glucose Calcium Magnesium Total Bilirubin Conjugated Bilirubin AST ALT Alkaline Phosphatase C-Reactive Protein Total Protein Albumin Procalcitonin Urine Color Urine Clarity Urine pH Ur Specific [place] Urine Protein Urine Ketones Urine Blood Urine Nitrite Urine Bilirubin Urine Urobilinogen Ur Leukocyte Esterase Urine RBC Urine WBC Ur Epithelial Cells Urine Crystals Urine Bacteria Urine Casts Urine Mucus Ur Culture Indicated? Urine Glucose
[2021-12-24 11:52] VITALS: BP 170/85; PULSE 64; RESP 16; TEMP 36; O2SAT 98
[2021-12-24] MEDS: Normal Saline Flush 10 ML SYR IVP ×2 (12:25→16:25)
[2021-12-24] MEDS: Furosemide 20 MG/2 ML VIAL IVP (12:25)
--- NOTE | 2021-12-24 14:31 | CMPROGNOTE_ITS ---
- If Service Date Differs Date of service: 12/24/21 Time of Service: 14:31 Care Management Progress Note S/O: Isak continues to be closely monitored at this time. Per MD, UTI is improving. CM continues to follow. A: 81 year old male admitted to [facility] 12/21/21 for Urosepsis P: Isak will return home once medically cleared by MD. His nephew will drive him home via private vehicle. He will follow up with [facility]; 01/08/22@1030 with his RAGHAV Moreno as well as Urology either at [facility] or [facility]. CM will continue to follow.
--- NOTE | 2021-12-24 14:31 | PDOC.CMPRO ---
- If Service Date Differs Date of service: 12/24/21 Time of Service: 14:31 Care Management Progress Note S/O: Isak continues to be closely monitored at this time. Per MD, UTI is improving. CM continues to follow. A: 81 year old male admitted to [facility] 12/21/21 for Urosepsis P: Isak will return home once medically cleared by MD. His nephew will drive him home via private vehicle. He will follow up with [facility]; 01/08/22@1030 with his RAGHAV Moreno as well as Urology either at [facility] or [facility]. CM will continue to follow.
[2021-12-24] MEDS: Enoxaparin 40 MG/0.4 ML SYR SC (18:09)
[2021-12-24 19:52] VITALS: BP 160/78; PULSE 75; RESP 18; TEMP 36.6; O2SAT 97
[2021-12-24 23:25] VITALS: BP 162/76; PULSE 75; RESP 16; TEMP 36.5; O2SAT 97
[2021-12-25] VITALS (7 sets, daily range): BP systolic 130–193; BP diastolic 65–93; PULSE 63–96; RESP 14–16; TEMP 36.4–36.8; O2SAT 96–100
[2021-12-25 05:08] LABS: Abs Immature Grans 0.08 10^3/uL (0.0-0.06); Absolute Basophil Count 0.02 10^3/uL (0.0-0.2); Absolute Eosinophil Count 0.11 10^3/uL (0.0-0.7); Absolute Lymphocyte Count 1.68 10^3/uL (1.2-3.4); Absolute Monocyte Count 0.48 10^3/uL (0.1-0.8); Absolute Neutrophil Count 6.42 10^3/uL (1.2-6.7); Basophils % 0.2; Eosinophils % 1.3; HCT 30.9 % (40.0-50.0); HGB 10.5 g/dL (13.5-17.5); Immature Grans % 0.9; Lymphocytes % 19.1; MCH 31.1 pg (27.0-33.0); MCV 91.4 fL (80-95); MPV 9.3 fL (8.0-11.0); Monocytes % 5.5; Nucleated RBC 0 %; Platelet Count 147 10^3/uL (130-400); RBC 3.38 10^6/uL (4.36-5.78); RDW 12.8 % (11.8-14.1); RDW-SD 42.4 fL; WBC 8.79 10^3/uL (4.4-10.8)
[2021-12-25 05:17] LABS: Anion Gap 7.8 mmol/L (3-11); BUN 27 mg/dL (7-18); CO2 27.2 mmol/L (21.0-32.0); CREATININE 1.3 mg/dL (0.70-1.30); Calcium 8.8 mg/dL (8.5-10.1); Chloride 107 mmol/L (98-107); Estimated GFR 52.98 (mL/min/1.73m2); Glucose 91 mg/dL (74-106); Magnesium 2.3 mg/dL (1.8-2.4); Potassium 4.4 mmol/L (3.5-5.1); Sodium 142 mmol/L (136-145)
[2021-12-25 05:32] LABS: Vancomycin, Trough 20.3 ug/mL (10.0-20.0)
[2021-12-25] MEDS: VANCOMYCIN/WATER (PEG) 1 GM/200 ML BAG IV ×2 (06:38→22:27)
[2021-12-25] MEDS: Tamsulosin 0.4 MG CAPCR PO (08:51)
[2021-12-25] MEDS: Finasteride 5 MG TAB PO (08:51)
[2021-12-25] MEDS: cefTRIAXone 2 GM/50 ML BAG IVPB (08:52)
[2021-12-25] MEDS: Normal Saline Flush 10 ML SYR IVP ×3 (08:52→17:21)
--- NOTE | 2021-12-25 16:46 | W.PM.PROGNOT ---
Date of Service Date of service: 12/25/21 Time of Service: 16:47 Assessment and Plan Assessment and plan (1) Sepsis: Status: Acute Assessment and plan: Due to UTI, POA. In setting of urinary retention and instrumentation. However, culture at [facility] was contaminated, and blood cultures were negative. Continue vanco/ceftriaxone. IMproving. Urine culture done here was done on abx and is negative. Qualifiers: Sepsis type: Escherichia coli Sepsis acute organ dysfunction status: with acute organ dysfunction Severe sepsis acute organ dysfunction type: acute renal failure Acute renal failure type: unspecified Severe sepsis shock status: without septic shock Qualified Code(s): A41.51 - Sepsis due to Escherichia coli [E. coli]; R65.20 - Severe sepsis without septic shock; N17.9 - Acute kidney failure, unspecified (2) UTI (urinary tract infection): Status: Acute Assessment and plan: As above Will need to complete hematuria w/u - cystoscopy as inpatient when UTI is better treated vs as outpatient. (3) Urinary retention: Status: Acute Assessment and plan: As above Continue flomax. Manuel catheter replaced overnight. Will need VT - plan in 48 hrs. (4) Gross hematuria: Status: Acute Assessment and plan: Clinically appears to have resolved. Will monitor. (5) BPH loc w urin obs/LUTS: Status: Acute Assessment and plan: As above. on flomax. Retaining urine. Urology consulted. (6) KENZIE (acute kidney injury): Status: Resolved Assessment and plan: No hydronephrosis on US. Continue to monitor while diuresing. (7) Neutropenia: Status: Resolved Assessment and plan: The patient has neutrophilia at this point. I do suspect that this was acute sepsis related. (8) Hypertension: Status: Chronic Assessment and plan: Appears fluid overloaded at this time - will diurese and start on HCTZ tomorrow. (9) DVT prophylaxis: Status: Acute Assessment and plan: lovenox (10) Discharge planning issues: Status: Acute Assessment and plan: DNR/DNI Continues to require hospitalization May require cystoscopy on this admission vs as outpatient. Subjective Subjective Interval history since last seen: Mr Lamar was retaining urine overnight and ended up with a manuel catheter reinserted. Today he was anxious because urine leaked around his catheter. denies dizziness, chest pain, shortness of breath, nausea. Exam Narrative Exam Narrative: General: Pleasant mildly anxious and forgetful elderly male who appears younger than his stated age, A&Ox3, sitting comfortably in a chair HEENT: EOMI, MMM Heart: RRR, no m/r/g Lungs: CTAB Abdomen: soft, nondistended Extremities: +2 BLE edema in TEDs, worse today : urine in manuel catheter very diluted. Objective Last Vital Signs Temp 36.6 C 12/25/21 15:50 Pulse 82 12/25/21 15:50 Resp 16 12/25/21 15:50 BP 193/93 H 12/25/21 15:50 Pulse Ox 100 12/25/21 15:50 Laboratory Results - last 24 hr 12/25/21 12/25/21 12/25/21 05:02 05:02 05:02 WBC 8.79 D RBC 3.38 L Hgb 10.5 L Hct 30.9 L MCV 91.4 MCH 31.1 MCHC 34.0 RDW 12.8 Plt Count 147 MPV 9.3 Immature Gran % 0.9 Neutrophils % 73.0 Lymphocytes % 19.1 Monocytes % 5.5 Eosinophils % 1.3 Basophils % 0.2 Nucleated RBC % 0 Absolute Neutrophils 6.42 Absolute Lymphocytes 1.68 Absolute Monocytes 0.48 Absolute Eosinophils 0.11 Absolute Basophils 0.02 Sodium 142 Potassium 4.4 Chloride 107 Carbon Dioxide 27.2 Anion Gap 7.8 BUN 27 H Creatinine 1.3 Estimated GFR/1.73 m2 52.98 Glucose 91 Calcium 8.8 Magnesium 2.3 Vancomycin Trough 20.3 H*
--- NOTE | 2021-12-25 16:49 | CMPROGNOTE_ITS ---
- If Service Date Differs Date of service: 12/25/21 Time of Service: 16:49 Care Management Progress Note S/O: Isak continues to be closely monitored at this time. Per MD, UTI is improving, per Isak, lasix was restarted today which has caused increased urination and now, increased stool. He appeared frustrated with these increases during CM visit, and he reported his catheter had begun to leak. CM pressed RN button and reviewed Isak's reports, RN began to access, CM left room. While awaiting RN, CM reviewed DC plan including VNA supports and PCP follow up; Isak is agreeable at this time. CM continues to follow. A: 81 year old male admitted to [facility] 12/21/21 for Urosepsis P: Isak will return home once medically cleared by . His nephew will drive him home via private vehicle. He will follow up with [facility]; 01/08/22@1030 with his RAGHAV Moreno as well as Urology either at [facility] or [facility]. Per , anticipate VNA RN for medication management as well. CM will continue to follow.
[2021-12-25] MEDS: Enoxaparin 40 MG/0.4 ML SYR SC (17:21)
[2021-12-25] MEDS: Furosemide 40 MG/4 ML VIAL IVP (17:21)
[2021-12-26 03:40] VITALS: BP 167/85; PULSE 68; RESP 16; TEMP 37.5; O2SAT 98
[2021-12-26 06:51] LABS: Abs Immature Grans 0.13 10^3/uL (0.0-0.06); Absolute Basophil Count 0.04 10^3/uL (0.0-0.2); Absolute Eosinophil Count 0.13 10^3/uL (0.0-0.7); Absolute Lymphocyte Count 1.64 10^3/uL (1.2-3.4); Absolute Monocyte Count 0.54 10^3/uL (0.1-0.8); Basophils % 0.6; Eosinophils % 1.9; HCT 33.3 % (40.0-50.0); HGB 11.1 g/dL (13.5-17.5); Immature Grans % 1.9; Lymphocytes % 24.6; MCH 30.2 pg (27.0-33.0); MCHC 33.3 % (32.0-36.0); MCV 90.5 fL (80-95); MPV 9.5 fL (8.0-11.0); Monocytes % 8.1; Neutrophils % 62.9; Nucleated RBC 0 %; Platelet Count 173 10^3/uL (130-400); RBC 3.68 10^6/uL (4.36-5.78); RDW 12.4 % (11.8-14.1); RDW-SD 41.3 fL; WBC 6.68 10^3/uL (4.4-10.8)
[2021-12-26 07:10] LABS: BUN 19 mg/dL (7-18); CREATININE 1.2 mg/dL (0.70-1.30); Calcium 9.1 mg/dL (8.5-10.1); Chloride 106 mmol/L (98-107); Estimated GFR 58.11 (mL/min/1.73m2); Glucose 94 mg/dL (74-106); Magnesium 2.2 mg/dL (1.8-2.4); Potassium 3.6 mmol/L (3.5-5.1); Sodium 142 mmol/L (136-145)
[2021-12-26 07:29] LABS: Procalcitonin 14.4 ng/mL
[2021-12-26 08:12] VITALS: BP 160/81; PULSE 60; RESP 14; TEMP 36.6
[2021-12-26] MEDS: cefTRIAXone 2 GM/50 ML BAG IVPB (08:41)
[2021-12-26] MEDS: hydroCHLOROthiazide 12.5 MG TAB PO (08:42)
[2021-12-26] MEDS: Finasteride 5 MG TAB PO (08:42)
[2021-12-26] MEDS: Tamsulosin 0.4 MG CAPCR PO (08:42)
[2021-12-26] MEDS: Normal Saline Flush 10 ML SYR IVP ×2 (08:43→09:49)
[2021-12-26 13:30] VITALS: BP 164/71; PULSE 70; RESP 14; TEMP 36.7; O2SAT 98
[2021-12-26] MEDS: VANCOMYCIN/WATER (PEG) 1 GM/200 ML BAG IV (14:36)
--- NOTE | 2021-12-26 14:50 | W.PM.PROGNOT ---
Date of Service Date of service: 12/26/21 Time of Service: 14:50 Assessment and Plan Assessment and plan (1) Sepsis: Status: Acute Assessment and plan: Due to UTI, POA. In setting of urinary retention and instrumentation. However, culture at [facility] was contaminated, and blood cultures were negative. Continue vanco/ceftriaxone. Could consider d/c vancomycin tomorrow. Improving. Procalcitonin down to 14.4 from >190. Urine culture done here was done on abx and is negative. VT tomorrow. Qualifiers: Sepsis type: Escherichia coli Sepsis acute organ dysfunction status: with acute organ dysfunction Severe sepsis acute organ dysfunction type: acute renal failure Acute renal failure type: unspecified Severe sepsis shock status: without septic shock Qualified Code(s): A41.51 - Sepsis due to Escherichia coli [E. coli]; R65.20 - Severe sepsis without septic shock; N17.9 - Acute kidney failure, unspecified (2) UTI (urinary tract infection): Status: Acute Assessment and plan: As above Will need to complete hematuria w/u - cystoscopy as inpatient when UTI is better treated vs as outpatient. (3) Urinary retention: Status: Acute Assessment and plan: As above Continue flomax. Beladonna suppositories for bladder spasms. Remove manuel and VT tomorrow. (4) Gross hematuria: Status: Acute Assessment and plan: Clinically appears to have resolved. Will monitor. Will need cystoscopy (?inpatient vs outpatient). (5) BPH loc w urin obs/LUTS: Status: Acute Assessment and plan: As above. on flomax. Retaining urine. Urology consulted. (6) KENZIE (acute kidney injury): Status: Resolved Assessment and plan: No hydronephrosis on US. Continue to monitor while diuresing. (7) Neutropenia: Status: Resolved Assessment and plan: The patient has neutrophilia at this point. I do suspect that this was acute sepsis related. (8) Hypertension: Status: Chronic Assessment and plan: Improved. Initiated on HCTZ - continue. (9) DVT prophylaxis: Status: Acute Assessment and plan: lovenox (10) Discharge planning issues: Status: Acute Assessment and plan: DNR/DNI Continues to require hospitalization May require cystoscopy on this admission vs as outpatient. Subjective Subjective Interval history since last seen: Feels better. Denies dizziness, chest pain, shortness of breath, nausea. Has been having bladder spasms, per nursing. Exam Narrative Exam Narrative: General: Pleasant mildly anxious and forgetful elderly male who appears younger than his stated age, A&Ox3, sitting comfortably in a chair HEENT: EOMI, MMM Heart: RRR, no m/r/g Lungs: CTAB Abdomen: soft, nondistended Extremities: +1 BLE edema in TEDs, much improved : has a manuel Objective Last Vital Signs Temp 36.7 C 12/26/21 13:30 Pulse 70 12/26/21 13:30 Resp 14 12/26/21 13:30 BP 164/71 H 12/26/21 13:30 Pulse Ox 98 12/26/21 13:30 Laboratory Results - last 24 hr 12/26/21 12/26/21 12/26/21 06:27 06:27 06:27 WBC 6.68 RBC 3.68 L Hgb 11.1 L Hct 33.3 L MCV 90.5 MCH 30.2 MCHC 33.3 RDW 12.4 Plt Count 173 MPV 9.5 Immature Gran % 1.9 Neutrophils % 62.9 Lymphocytes % 24.6 Monocytes % 8.1 Eosinophils % 1.9 Basophils % 0.6 Nucleated RBC % 0 Absolute Neutrophils 4.20 Absolute Lymphocytes 1.64 Absolute Monocytes 0.54 Absolute Eosinophils 0.13 Absolute Basophils 0.04 Sodium 142 Potassium 3.6 Chloride 106 Carbon Dioxide 27.0 Anion Gap 9.0 BUN 19 H D Creatinine 1.2 Estimated GFR/1.73 m2 58.11 Glucose 94 Calcium 9.1 Magnesium 2.2 Procalcitonin 14.4
[2021-12-26 15:40] VITALS: BP 164/75; PULSE 64; RESP 16; TEMP 37.4; O2SAT 99
--- NOTE | 2021-12-26 16:30 | PDOC.CMPRO ---
- If Service Date Differs Date of service: 12/26/21 Time of Service: 16:30
--- NOTE | 2021-12-26 16:37 | PDOC.CMPRO ---
- If Service Date Differs Date of service: 12/26/21 Time of Service: 16:37 Care Management Progress Note S/O: Isak continues to improve, per report. He will have his catheter removed tomorrow and will have a voiding trial, to help determine if he is nearing discharge readiness. He is on broad antibiotics, as his cultures were not collected at [facility]. He will likely require a cystoscopy, which may be out patient. CM will continue to follow. A: 81 year old male admitted to [facility] 12/21/21 for Urosepsis P: Isak will return home once medically cleared by . His nephew will drive him home via private vehicle. He will follow up with [facility]; 01/08/22@1030 with his RAGHAV Moreno as well as Urology either at [facility] or [facility]. Per MD, anticipate VNA RN for medication management as well. CM will continue to follow.
[2021-12-26] MEDS: Enoxaparin 40 MG/0.4 ML SYR SC (17:35)
[2021-12-26 20:22] VITALS: BP 186/87; PULSE 70; RESP 18; TEMP 36; O2SAT 98
[2021-12-26 20:23] VITALS: BP 167/79
[2021-12-27] VITALS (9 sets, daily range): BP systolic 143–183; BP diastolic 62–85; PULSE 59–70; RESP 14–18; TEMP 35.7–36.9; O2SAT 98–100
[2021-12-27] MEDS: Normal Saline Flush 10 ML SYR IVP ×2 (05:52→08:47)
[2021-12-27] MEDS: VANCOMYCIN/WATER (PEG) 1 GM/200 ML BAG IV (05:53)
[2021-12-27 07:38] LABS: Anion Gap 8.7 mmol/L (3-11); BUN 19 mg/dL (7-18); CO2 26.3 mmol/L (21.0-32.0); CREATININE 1.1 mg/dL (0.70-1.30); Calcium 9.3 mg/dL (8.5-10.1); Chloride 105 mmol/L (98-107); Glucose 95 mg/dL (74-106); Magnesium 2.2 mg/dL (1.8-2.4); Sodium 140 mmol/L (136-145)
[2021-12-27] MEDS: hydroCHLOROthiazide 12.5 MG TAB PO (08:44)
[2021-12-27] MEDS: Tamsulosin 0.4 MG CAPCR PO (08:45)
[2021-12-27] MEDS: Finasteride 5 MG TAB PO (08:45)
[2021-12-27] MEDS: amLODIPine 5 MG TAB PO (08:45)
[2021-12-27] MEDS: cefTRIAXone 2 GM/50 ML BAG IVPB (08:46)
--- NOTE | 2021-12-27 16:15 | PDOC.CMPRO ---
- If Service Date Differs Date of service: 12/27/21 Time of Service: 16:15 Care Management Progress Note S/O: Isak was sitting up in his chair when CM met with him. He reported that he is discouraged by needing to continue to be hospitalized, as he has never had a major medical event leading to hospitalization in the past. He reported that he may require a cystoscopy during this admission, although he is waiting for confirmation from MD. He stated that his nephew has been visiting, and that he is grateful that he has support through this process. Per report, he continues to receive IV antibiotics and remains acute at this time. CM will continue to follow. A: Gene is an 81 year old male admitted to [facility] 12/21/21 for Urosepsis P: Isak will return home once medically cleared by . His nephew will drive him home via private vehicle. He will follow up with [facility]; 01/08/22@1030 with his RAGHAV Moreno as well as Urology either at [facility] or [facility]. Per , anticipate [facility]T RN for medication management as well. CM will continue to follow.
--- NOTE | 2021-12-27 16:58 | W.PM.PROGNOT ---
Date of Service Date of service: 12/27/21 Time of Service: 15:45 Assessment and Plan Assessment and plan (1) Urinary retention: Status: Acute (2) Gross hematuria: Status: Acute Assessment and plan: Believe we are at a place in his clinical course where cystoscopy would be considered safe. How we proceed from here really depends on whether or not he passes his voiding trial. If he is able to void on his own, we can probably arrange for a cystoscopy and retrograde pyelogram to complete his hematuria work-up. If he is unable to void, we would need to consider doing a transurethral resection of the prostate at the same time. I did have some preliminary discussions with the patient regarding this type of surgery today. We will revisit this option tomorrow after we see how he does with voiding. Subjective Subjective Interval history since last seen: The patient has been given a voiding trial today. His catheter has been removed and he is voided a small amount of urine so far. He does not feel the need to urinate at this time. He is not complaining of any fever or chills. He has not seen any gross hematuria. Exam Narrative Exam Narrative: He is sitting up at the bed side. He does not appear septic or toxic. His vital signs are documented elsewhere His abdomen is soft. His bladder is not distended. He is awake and alert Objective Last Vital Signs Temp 36.8 C 12/27/21 16:51 Pulse 59 L 12/27/21 16:51 Resp 16 12/27/21 16:51 BP 168/80 H 12/27/21 16:51 Pulse Ox 100 12/27/21 16:51 Laboratory Results - last 24 hr 12/27/21 06:45 Sodium 140 Potassium 4.0 Chloride 105 Carbon Dioxide 26.3 Anion Gap 8.7 BUN 19 H Creatinine 1.1 Estimated GFR/1.73 m2 >= 60.00 Glucose 95 Calcium 9.3 Magnesium 2.2
--- NOTE | 2021-12-27 17:18 | W.PM.PROGNOT ---
Date of Service Date of service: 12/27/21 Time of Service: 17:18 Assessment and Plan Assessment and plan (1) Sepsis: Status: Acute Assessment and plan: Due to UTI, POA. In setting of urinary retention and instrumentation. However, culture at [facility] was contaminated, and blood cultures were negative. Urine C&S done at our facility was negative but was done on abx. Continue ceftriaxone. Vancomycin d/c'ed - will monitor for any worsening. Improving. Procalcitonin down significantly. VT today. Qualifiers: Sepsis type: Escherichia coli Sepsis acute organ dysfunction status: with acute organ dysfunction Severe sepsis acute organ dysfunction type: acute renal failure Acute renal failure type: unspecified Severe sepsis shock status: without septic shock Qualified Code(s): A41.51 - Sepsis due to Escherichia coli [E. coli]; R65.20 - Severe sepsis without septic shock; N17.9 - Acute kidney failure, unspecified (2) UTI (urinary tract infection): Status: Acute Assessment and plan: As above Will need to complete hematuria w/u - cystoscopy w/ B retrograde pyelogram +/- TURP - likely on this admission. (3) Urinary retention: Status: Acute Assessment and plan: As above Continue flomax. VT today. (4) Gross hematuria: Status: Acute Assessment and plan: Microscopic at this point. Will monitor. See discussion re cystoscopy above. (5) BPH loc w urin obs/LUTS: Status: Acute Assessment and plan: As above. on flomax. (6) KENZIE (acute kidney injury): Status: Resolved Assessment and plan: No hydronephrosis on US. Continue to monitor now that he is on HCTZ. (7) Neutropenia: Status: Resolved Assessment and plan: The patient has neutrophilia at this point. I do suspect that this was acute sepsis related. (8) Hypertension: Status: Chronic Assessment and plan: Better. Increase HCTZ. (9) DVT prophylaxis: Status: Acute Assessment and plan: lovenox (10) Discharge planning issues: Status: Acute Assessment and plan: DNR/DNI Continues to require hospitalization Will likely need cystscopy with retrograde pyelogram +/-TURP prior to discharge. Discussed with Dr Saenz. Subjective Subjective Interval history since last seen: Mr Lamar is undergoing a voiding trial today. Denies dizziness, chest pain, shortness of breath, nausea. Vancomycin stopped today. Seen by Dr Saenz who, depending on the results of the voiding trial, may have to do a TURP in addition to cystoscopy/retrograde pyelogram. Exam Narrative Exam Narrative: General: Pleasant forgetful elderly male who appears younger than his stated age, A&Ox3, sitting comfortably in a chair, having dinner HEENT: EOMI, MMM Heart: RRR, no m/r/g Lungs: CTAB Abdomen: soft, nondistended Extremities: trace BLE edema in TEDs, improved Objective Last Vital Signs Temp 36.8 C 12/27/21 16:51 Pulse 59 L 12/27/21 16:51 Resp 16 12/27/21 16:51 BP 168/80 H 12/27/21 16:51 Pulse Ox 100 12/27/21 16:51 Laboratory Results - last 24 hr 12/27/21 06:45 Sodium 140 Potassium 4.0 Chloride 105 Carbon Dioxide 26.3 Anion Gap 8.7 BUN 19 H Creatinine 1.1 Estimated GFR/1.73 m2 >= 60.00 Glucose 95 Calcium 9.3 Magnesium 2.2
[2021-12-27] MEDS: Enoxaparin 40 MG/0.4 ML SYR SC (17:51)
[2021-12-28 03:16] VITALS: BP 170/85; PULSE 66; RESP 17; TEMP 36.4; O2SAT 98
[2021-12-28 07:12] LABS: Anion Gap 8.3 mmol/L (3-11); BUN 19 mg/dL (7-18); CO2 25.7 mmol/L (21.0-32.0); CREATININE 1.1 mg/dL (0.70-1.30); Calcium 9.2 mg/dL (8.5-10.1); Chloride 104 mmol/L (98-107); Glucose 94 mg/dL (74-106); Magnesium 2.1 mg/dL (1.8-2.4); Potassium 3.8 mmol/L (3.5-5.1); Sodium 138 mmol/L (136-145)
[2021-12-28 07:19] VITALS: BP 161/78; PULSE 67; RESP 16; TEMP 36.8; O2SAT 98
[2021-12-28 07:35] LABS: Procalcitonin 3.4 ng/mL
[2021-12-28] MEDS: Tamsulosin 0.4 MG CAPCR PO (09:02)
[2021-12-28] MEDS: hydroCHLOROthiazide 25 MG TAB PO (09:02)
[2021-12-28] MEDS: amLODIPine 5 MG TAB PO (09:02)
[2021-12-28] MEDS: cefTRIAXone 2 GM/50 ML BAG IVPB (09:03)
[2021-12-28] MEDS: Finasteride 5 MG TAB PO (09:03)
[2021-12-28] MEDS: Normal Saline Flush 10 ML SYR IVP (09:04)
--- NOTE | 2021-12-28 09:46 | PGE_ITS ---
Date of Service Date of service: 12/28/21 Time of Service: 09:46 Assessment and Plan Assessment and plan (1) Urinary retention: Status: Acute Assessment and plan: He has been able to void with the combination of finasteride and tamsulosin. There is no indication that he will require surgical intervention such as a TURP at this time (2) Gross hematuria: Status: Acute Assessment and plan: Based on the records that we have available, his gross hematuria has not been completely worked up. It certainly could be related to his acute UTI, but we have not ruled out all other possibilities. He has had a renal ultrasound here at our facility and no renal masses or large renal stones are seen. We still recommend a cystoscopy and retrograde pyelogram to complete his hematuria work- up. We can accomplish the procedure either while he is still an inpatient or on an outpatient basis for him. I will ask my office to start looking at OR scheduling to see when this procedure might be possible (3) UTI (urinary tract infection): Status: Acute Assessment and plan: His urine culture sure results are not overly helpful. The original culture done at outside hospital showed contaminant. Our cultures were obtained after antibiotics were given. It is difficult to know exactly which antibiotic to use and what duration of antibiotic should be recommended. Subjective Subjective Interval history since last seen: The patient has been able to void, so his his indwelling catheter has not needed to be replaced. He is not seeing any gross hematuria. He does not describe dysuria. Exam Narrative Exam Narrative: He does not appear septic or toxic His vital signs are documented elsewhere He is awake and alert Objective Last Vital Signs Temp 36.8 C 12/28/21 07:19 Pulse 67 12/28/21 07:19 Resp 16 12/28/21 07:19 BP 161/78 H 12/28/21 07:19 Pulse Ox 98 12/28/21 07:19 Laboratory Results - last 24 hr 12/28/21 12/28/21 06:35 06:35 Sodium 138 Potassium 3.8 Chloride 104 Carbon Dioxide 25.7 Anion Gap 8.3 BUN 19 H Creatinine 1.1 Estimated GFR/1.73 m2 >= 60.00 Glucose 94 Calcium 9.2 Magnesium 2.1 Procalcitonin 3.4
--- NOTE | 2021-12-28 10:01 | W.NUTRFU ---
Date of service: 12/28/21 Time of Service: 10:01 Nutrition Note NOTE: 81 year old male admitted with UTI. BMI wnl. Following Low Sodium Diet with excellent intake. Not at nutritional risk. Time Spent in Nutritional Counseling and Treatment: 5
[2021-12-28 12:00] VITALS: BP 134/72; PULSE 66; RESP 16; TEMP 36; O2SAT 99
--- NOTE | 2021-12-28 12:25 | W.PM.PROGNOT ---
Assessment and Plan Assessment and plan (1) Sepsis: Status: Acute Assessment and plan: Due to UTI, POA. In setting of urinary retention and instrumentation. However, culture at [facility] was contaminated, and blood cultures were negative. Urine C&S done at our facility was negative but was done on abx. Continue ceftriaxone. Vancomycin d/c'ed - will monitor for any worsening. Improving. Procalcitonin down significantly. VT today. Qualifiers: Sepsis type: Escherichia coli Sepsis acute organ dysfunction status: with acute organ dysfunction Severe sepsis acute organ dysfunction type: acute renal failure Acute renal failure type: unspecified Severe sepsis shock status: without septic shock Qualified Code(s): A41.51 - Sepsis due to Escherichia coli [E. coli]; R65.20 - Severe sepsis without septic shock; N17.9 - Acute kidney failure, unspecified (2) UTI (urinary tract infection): Status: Acute Assessment and plan: As above Will need to complete hematuria w/u - cystoscopy w/ B retrograde pyelogram +/- TURP - likely on this admission. (3) Urinary retention: Status: Acute Assessment and plan: As above Continue flomax. VT today. (4) Gross hematuria: Status: Acute Assessment and plan: Microscopic at this point. Will monitor. See discussion re cystoscopy above. (5) BPH loc w urin obs/LUTS: Status: Acute Assessment and plan: As above. on flomax. (6) KENZIE (acute kidney injury): Status: Resolved Assessment and plan: No hydronephrosis on US. Continue to monitor now that he is on HCTZ. (7) Neutropenia: Status: Resolved Assessment and plan: The patient has neutrophilia at this point. I do suspect that this was acute sepsis related. (8) Hypertension: Status: Chronic Assessment and plan: Better. Increase HCTZ. (9) DVT prophylaxis: Status: Acute Assessment and plan: lovenox (10) Discharge planning issues: Status: Acute Assessment and plan: DNR/DNI Continues to require hospitalization Will likely need cystscopy with retrograde pyelogram +/-TURP prior to discharge. Discussed with Dr Saenz. Exam Narrative Exam Narrative: General: Pleasant forgetful elderly male who appears younger than his stated age, A&Ox3, sitting comfortably in a chair, having dinner HEENT: EOMI, MMM Heart: RRR, no m/r/g Lungs: CTAB Abdomen: soft, nondistended Extremities: trace BLE edema in TEDs, improved Objective Last Vital Signs Temp 36.8 C 12/28/21 07:19 Pulse 67 12/28/21 07:19 Resp 16 12/28/21 07:19 BP 161/78 H 12/28/21 07:19 Pulse Ox 98 12/28/21 07:19 Laboratory Results - last 24 hr 12/28/21 12/28/21 06:35 06:35 Sodium 138 Potassium 3.8 Chloride 104 Carbon Dioxide 25.7 Anion Gap 8.3 BUN 19 H Creatinine 1.1 Estimated GFR/1.73 m2 >= 60.00 Glucose 94 Calcium 9.2 Magnesium 2.1 Procalcitonin 3.4
--- NOTE | 2021-12-28 13:13 | DSE_ITS ---
Date of service: 12/28/21 Time of Service: 13:14 DS: Diagnosis Discharge Diagnosis (1) Sepsis: Status: Acute (2) UTI (urinary tract infection): Status: Acute (3) Urinary retention: Status: Acute (4) Gross hematuria: Status: Acute (5) BPH loc w urin obs/LUTS: Status: Acute (6) KENZIE (acute kidney injury): Status: Resolved (7) Neutropenia: Status: Resolved (8) Hypertension: Status: Chronic (9) DVT prophylaxis: Status: Acute (10) Discharge planning issues: Status: Acute Discharge Plan Disposition Patient Disposition: HOME Condition: Good Discharge Details Reason For Visit: Urosepsis Admit Date/Time: 12/21/21 17:36 Admit Provider: Pawel Augustin Attending Provider: Pawel Augustin [facility] Course Hospital Course: This is an 81-year-old male who reportedly has had no significant past medical history (does not see a physician/provider regularly) but developed UTI symptoms the week prior to admission including hematuria dysuria and polyuria along with fever and chills.? He had been prescribed antibiotics (I believe Cipro) but when he read the potential side effects he decided not to take them.? He followed up with a urologist on day of admission and underwent cystoscopy at [facility] in [facility].? He was given a dose of ciprofloxacin perioperatively around 11 AM.? He went out with his nephew to get some lunch at noon time and became nauseated and vomited and was complaining of fever and rigors.? He thought he was having a reaction to the antibiotic and was driven back to the emergency department at [facility] around 1:30 PM.? Upon arrival he was febrile with a temperature of 102.2 and tachycardic with a heart rate of 105 bpm and hypertensive with a blood pressure 170/89 with a pulse oximetry of 98%.? His fever spiked to 103.3.? His blood pressure dropped as low as 100/70 by 4 PM.? Per ER notes from [facility] patient's previous urine culture grew E. coli that was pansensitive.? Patient was treated with Rocephin 2 g.? He was also given 1 L of IV fluids and 1 g of acetaminophen.? Work-up included routine labs including blood lactate that was elevated at 6, urinalysis that demonstrated specific gravity of 1.020 and greater than 3 mg/dL protein large amount of blood positive for nitrites small amount leukocyte esterase 10-20 white cells and 2+ bacteria.? CBC demonstrated neutropenia with a total white cell count of 1180 and an ANC of 960.? No anemia.? Platelet count 172,000.? Electrolytes were normal but creatinine is elevated 1.35 anion gap 15.7.? LFTs with slightly elevated total bilirubin 1.5 AST ALT and alkaline phosphatase all normal.? Chest x-ray was done showed no acute findings.? [facility] had no capacity for admission and apparently there fellow hospitals in their [facility] system also had no capacity.? The ER attending Dr. Briceño spoke with our hospitalist Dr. Sandra who accepted the patient for hospitalization.? The time of transfer at 1753 his vital signs had stabilized with a blood pressure 108/74 and a heart rate of 91 and oxygen saturation 98%.? He was no longer having rigors as mental status is improved.? Hewas admitted to [facility] to the medical/surgical floor for treatment of urosepsis.?Continued on high-dose Rocephin 2 g IV daily pending the results of his blood and urine cultures. Urology consulted. His clinical course continued to improve. His WBC count normalized. He did have voiding difficulties and was started on finasteride and tamsulosin. His urinary retention improved. He completed 8 days of Rocephin. He will d/c on keflex 500mg BID for 3 more days. His urine culture taken at the outside hospital showed contamination. Urine culture at [facility] taken after he had already received antibiotics in the ED at the OSH and there was no growth at the time of d/c. Dr Saenz, Urology, plans on a cystoscoy and bilateral retrograde pyelogram on 12/31/21. He does not have a PCP. Arrangement made to see a local provider, John Rajan, in follow up. He was found to have hypertension during this hospitalization. Amlodipine and HCTZ were initiated. Home Meds and New Rx's Prescriptions: New amlodipine 5 mg Tablet 5 mg PO DAILY Qty: 30 0RF tamsulosin 0.4 mg Capsule 0.4 mg PO DAILY Qty: 30 0RF hydrochlorothiazide 25 mg Tablet 25 mg PO QAM Qty: 30 0RF finasteride 5 mg Tablet 5 mg PO DAILY Qty: 30 0RF cephalexin 500 mg capsule 500 mg PO BID Qty: 6 0RF Rx Instructions: First dose on 12/29/21 Continued tamsulosin 0.4 mg Capsule 0.4 mg PO DAILY 0RF Discontinued ciprofloxacin HCl 500 mg Tablet 500 mg PO BID 0RF Discharge Instructions Instructions: Enlarged Prostate (BPH) (GEN) Additional Instructions: On Friday12/31/21 please take your Cipro and Tamsulosin as ordered with a small sip of water only. Referrals: John Rajan [ NON-[facility] STAFF PHYSICIAN] - 01/08/22 10:30 am (Has no PCP, follow up was made for when patient is discharged) Activity:: Activity as Tolerated Equipment/Supplies:: No Equipment Needed Diet:: Low Sodium Discharge Orders Discharge Orders: Discharge Order (Routine); Ordered 12/28/21 Ordered By: Romero Sandra DS: Summary Time Spent with Patient providing and/or coordinating discharge services: Greater than 30 minutes Status at Discharge Functional status at discharge: independent ambulation Overall status at discharge: patient is back to baseline Mental Status: mental status grossly normal Speech and Movement: speech and movement normal Mood: congruent mood Affect: blunted Exam Const General: cooperative and no acute distress Orientation: alert and oriented x3 HENMT Head: normocephalic and atraumatic Ears: hearing grossly normal bilaterally Resp Effort & Inspection: normal respiratory effort Auscultation: clear to auscultation bilaterally Cardio Rate: regular rate Rhythm: regular rhythm Heart Sounds: S1 normal and S2 normal GI Palpation: soft and nontender Auscultation: normal bowel sounds Skin General skin exam: no rashes or lesions noted Extrem General: no pedal edema and no calf tenderness Psych Appearance: grossly normal Mental Status: mental status grossly normal Speech and Movement: speech and movement normal Mood: congruent mood Affect: blunted DS: Data Vitals/I&O Vitals and I&O: Vital Signs Temperature 36.8 C 12/28/21 07:19 Temperature Source Tympanic 12/28/21 07:19 Pulse 67 12/28/21 07:19 Pulse Rhythm Regular 12/28/21 07:45 Respiratory Rate 16 12/28/21 07:19 Respiratory Effort Non-Labored 12/28/21 07:45 Respiratory Depth Normal 12/28/21 07:45 Respiratory Pattern Normal 12/28/21 07:45 Blood Pressure 161/78 H 12/28/21 07:19 Pulse Oximetry 98 12/28/21 07:19 Oxygen Delivery Method Room Air 12/28/21 07:19 Oxygen Flow Rate 0 12/28/21 07:19 Pain Level 0 12/28/21 07:19 Comment 12/28/21 07:19 Intake & Output 12/27/21 12/28/21 12/28/21 23:59 11:59 23:59 Intake Total 420 / 1000 670 / 670 Output Total 1630 / 2680 1154 / 1154 Balance -1210 / -1680 -484 / -484 Weight 70.6 kg Intake: IV Oral 420 / 950 660 / 660 Output: Urine 1630 / 2680 1100 / 1100 Post Void Residual 54 / 54 Other: Urine Color Yellow Yellow Urine Appearance Clear Clear Urine Odor None Normal Comment per Michelle Toure RN, patient has voided. not observed by this proposal manager writer. 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
[2021-12-28 14:59] LABS: Source Nasal/Nares
[2021-12-28 15:45] LABS: COVID-19 PCR Negative (Negative)
== END 2021-12-28 16:17 | disposition home or self-care (01) | DRG 872 ==
PROVIDERS: Family Medicine; Internal Medicine; Admitting Provider Internal Medicine; Visit Provider Internal Medicine
DX: A41.51 Sepsis due to Escherichia coli [E. coli] (principal); N17.9 Acute kidney failure, unspecified; N39.0 Urinary tract infection, site not specified; R65.20 Severe sepsis without septic shock; R31.0 Gross hematuria; N40.1 Benign prostatic hyperplasia with lower urinary tract symptoms; R33.9 Retention of urine, unspecified; I10 Essential (primary) hypertension; D70.3 Neutropenia due to infection; Z66 Do not resuscitate
CPT/HCPCS: 36415; 76770; 80048; 80053; 80076; 84145; 87081; 87635; 99223; 99232; J1650; 80202; 81003; 81015; 83605; 83735; 85025; 86140; 87086; 93970; 99233; 99239; J1940; J1941; J3475

== ENCOUNTER → 2021-12-24 08:17 | Outpatient (BNVA) | payer MEDICARE, BC, SELFPAY | PROVIDERS: Visit Provider Urology | DX: R69 Illness, unspecified (principal) ==

== ENCOUNTER 2021-12-31 08:26 | Day surgery (SDC) | payer MEDICARE, BC, SELFPAY ==
[2021-12-31 08:39] VITALS: BP 146/66; PULSE 63; RESP 16; TEMP 36.6; O2SAT 98
[2021-12-31] MEDS: Lactated Ringers 1,000 ML 80 ML IV (09:11)
--- NOTE | 2021-12-31 10:34 | W.PM.HP.N ---
Date of service: 12/31/21 Time of Service: 10:34 Assessment and Plan Assessment and plan (1) Gross hematuria: Assessment and plan: We will perform a cystoscopy and retrograde pyelogram to complete his hematuria workup. History of Present Illness History of Present Illness Chief Complaint: Gross hematuria Narrative: This is an 81-year-old [facility] onset of urinary frequency, gross hematuria and chills.? He was diagnosed with an E. coli urinary tract infection.? A combination of antibiotics and tamsulosin was prescribed.? Once the patient read the potential side effects, he took neither of these medications. It sounds as if he was referred to a urologist there at [facility].? I do not have access to any office note, but I do have access to a cystoscopy report.? A local cystoscopy was done there in the office.? Based on the reported findings, visualization was poor as it was quite uncomfortable for the patient. The patient apparently returned within 24 hours with signs and symptoms of sepsis.? Since no beds were available at [facility], he was transferred here for further care. He received IV antibiotics and he improved clinically. His initial culture showed a contaminent and cultures done after antibiotics were started showed no bacterial growth.? He has been started on tamsulosin and finasteride.? He passed his voiding trial and he is now voiding with a good stream and reasonable PVRs (when he was in the hospital) Based on the cystoscopy report, it sounds as if recommendations were made for a CT urogram and a urine cytology.? There was also consideration of cystoscopy under sedation.? None of these had been accomplished. He did have a renal US while he was hospitalized. No renal mass or hydronephrosis was identified. He presents now for cystoscopy and retrograde pyelogram to complete his hematuria workup. Review of Systems Narrative: No fevers or chills No vision change or dysphasia No diabetes or thyroid No shortness of breath, cough or hemoptysis No chest pain or palpitations No nausea, vomiting, hepatitis, ulcers, jaundice, diarrhea or constipation No seizures, strokes or peripheral neuropathy No bleeding disorders or anemia No gout PFSH All Active Problems (Updated 12/31/21 @ 10:41 by Adria Saenz MD) Hypertension (Chronic) Urinary retention (Acute) BPH loc w urin obs/LUTS (Acute) Medical History (Updated 12/31/21 @ 10:41 by Adria Saenz MD) 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 Gross hematuria Surgical History History of local excision of skin lesion (~04/11/21) Left shoulder, basal cell Family History Brother , secondary to heart attack Heart disease Social History Smoking/Tobacco Use Status: Never Smoking risk assessment performed?: Yes Alcohol Intake: former Drug use: Never Substance use type: does not use Household members: none current occupation: Retired from [employer], from [employer] [phone] Do you feel safe at home: Yes Meds Allergies and Home Medications Allergies Allergy/AdvReac Type Severity Reaction Status Date / Time No Known Allergies Allergy Unverified 12/31/21 08:37 Home Medications Medication Instructions Recorded Confirmed Type tamsulosin 0.4 mg capsule 0.4 mg PO DAILY 12/21/21 12/21/21 History amlodipine 5 mg tablet 5 mg PO DAILY #30 tab 12/28/21 Rx cephalexin 500 mg capsule 500 mg PO BID #6 cap 12/28/21 Rx finasteride 5 mg tablet 5 mg PO DAILY #30 tab 12/28/21 Rx hydrochlorothiazide 25 mg tablet 25 mg PO QAM #30 tab 12/28/21 Rx tamsulosin 0.4 mg capsule 0.4 mg PO DAILY #30 cap 12/28/21 Rx Exam Const General: cooperative and comfortable Neck Neck: supple Resp Effort & Inspection: normal respiratory effort Auscultation: clear to auscultation bilaterally Cardio Rate: regular rate Rhythm: regular rhythm GI Palpation: soft and no masses Neuro General: patient alert, patient awake and patient oriented x3 Results Last Vital Signs Temp 36.6 C 12/31/21 08:39 Pulse 63 12/31/21 08:39 Resp 16 12/31/21 08:39 BP 146/66 H 12/31/21 08:39 Pulse Ox 98 12/31/21 08:39
--- NOTE | 2021-12-31 11:54 | W.ANESPRE ---
General Info Date of Service Date Performed: 12/31/21 Height: 5 ft 9 in Weight: 72.5 kg Body Mass Index (BMI): 23.6 Surgical Procedure: Operation Date: 12/31/21 09:55 Proposed Procedure Side Surgeon p Cystoscopy/Retrograde Bilateral Adria Saenz MD Meds Allergies and Home Medications Allergies Allergy/AdvReac Type Severity Reaction Status Date / Time No Known Allergies Allergy Unverified 12/31/21 08:37 Home Medication Medication Instructions Recorded tamsulosin 0.4 mg capsule 0.4 mg PO DAILY 12/21/21 amlodipine 5 mg tablet 5 mg PO DAILY #30 tab 12/28/21 cephalexin 500 mg capsule 500 mg PO BID #6 cap 12/28/21 finasteride 5 mg tablet 5 mg PO DAILY #30 tab 12/28/21 hydrochlorothiazide 25 mg tablet 25 mg PO QAM #30 tab 12/28/21 tamsulosin 0.4 mg capsule 0.4 mg PO DAILY #30 cap 12/28/21 Current Visit Medications: Current Medications Generic Name Dose Route Start Last Admin Trade Name Freq PRN Reason Stop Dose Admin Ringer's Solution 1,000 mls @ 80 mls/hr 12/31/21 06:00 IV 01/30/22 23:59 INFUSION PATRICE Ringer's Solution 1,000 mls @ 80 mls/hr 12/31/21 08:30 12/31/21 09:11 IV 80 mls/hr INFUSION PATRICE Administration Cefazolin Sodium/Dextrose 2 gm in 50 mls @ 100 mls/hr 12/31/21 10:30 Ancef Duplex IVPB 12/31/21 16:00 PREOP PATRICE IV Miscellaneous Supplies 1 each 12/31/21 06:00 Iv Access IV 01/30/22 23:59 DIRECTED PATRICE Sodium Chloride 0 ml 12/31/21 06:00 Normal Saline Flush 10 Ml Syr IV 01/30/22 23:59 PRN PRN Sodium Chloride 0 ml 12/31/21 06:00 Normal Saline 10 Ml Vial IJ 01/30/22 23:59 DIRECTED PRN Sterile Water 0 ml 12/31/21 06:00 Water,Injection,Sterile 10 Ml Vial IJ 01/30/22 23:59 DIRECTED PRN PFSH Active Problems Active Problems: Problem Status Onset Code Hypertension I10 Urinary retention R33.9 BPH loc w urin obs/LUTS N40.1 Medical History Medical History (Updated 12/31/21 @ 10:41 by Adria Saenz MD) 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 Gross hematuria Surgical History Surgical History History of local excision of skin lesion (~04/11/21) Left shoulder, basal cell Tobacco Smoking/Tobacco Use Status: Never Alcohol Alcohol Intake: former Substance Use Substance use: Never Substance use type: does not use Vital Signs and Lab Results Vital Signs Most Recent Vital Signs in EMR: Most Recent Vital Signs Temp Pulse Resp BP Pulse Ox 36.6 C 63 16 146/66 H 98 12/31/21 08:39 12/31/21 08:39 12/31/21 08:39 12/31/21 08:39 12/31/21 08:39 Lab Results Blood Type / Crossmatch: No Data to Display Complete Blood Count: White Blood Count 6.68 10^3/uL (4.4-10.8) 12/26/21 06:27 12/26/21 Red Blood Count 3.68 10^6/uL (4.36-5.78) L 12/26/21 06:27 12/26/21 Hemoglobin 11.1 g/dL (13.5-17.5) L 12/26/21 06:27 12/26/21 Hematocrit 33.3 % (40.0-50.0) L 12/26/21 06:27 12/26/21 Platelet Count 173 10^3/uL (130-400) 12/26/21 06:27 12/26/21 Venous Blood Lactate 1.9 mmol/L (0.6-1.4) H 12/22/21 12:23 12/22/21 Complete Metabolic Panel: Sodium Level 138 mmol/L (136-145) 12/28/21 06:35 12/28/21 Potassium Level 3.8 mmol/L (3.5-5.1) 12/28/21 06:35 12/28/21 Chloride Level 104 mmol/L (98-107) 12/28/21 06:35 12/28/21 Carbon Dioxide Level 25.7 mmol/L (21.0-32.0) 12/28/21 06:35 12/28/21 Blood Urea Nitrogen 19 mg/dL (7-18) H 12/28/21 06:35 12/28/21 Creatinine 1.1 mg/dL (0.70-1.30) 12/28/21 06:35 12/28/21 Estimated GFR/1.73 m2 >= 60.00 (mL/min/1.73m2) 12/28/21 06:35 12/28/21 Magnesium Level 2.1 mg/dL (1.8-2.4) 12/28/21 06:35 12/28/21 Calcium Level 9.2 mg/dL (8.5-10.1) 12/28/21 06:35 12/28/21 Albumin 2.6 g/dL (3.4-5.0) L 12/24/21 06:56 12/24/21 Glucose Level 94 mg/dL (74-106) 12/28/21 06:35 12/28/21 C-Reactive Protein 8.93 mg/dL (0.0-0.3) H 12/24/21 06:56 12/24/21 Liver Function Panel: Alanine Aminotransferase (ALT/SGPT) 32 U/L (16-63) 12/24/21 06:56 12/24/21 Aspartate Amino Transf (AST/SGOT) 23 U/L (15-37) 12/24/21 06:56 12/24/21 Coagulation Panel: No Data to Display Cardiac Panel: No Data to Display Arterial Blood Gas: No Data to Display Venous Blood Gas: No Data to Display Pancreas Panel: No Data to Display Thyroid Panel: No Data to Display Infectious Disease: Coronavirus (COVID-19)(PCR) Negative (Negative) 12/28/21 14:20 12/28/21 Coronavirus 2019 Source Nasal/Nares 12/28/21 14:20 12/28/21 Blood Cultures: No Data to Display Toxicology Panel: No Data to Display Anesthesia Assessment and Plan Anesthesia History Personal History: No History of Anesthesia Complications Family History: No Family History of Anesthesia Complications Exercise Tolerance Exercise Tolerance: Metabolic Equivalents>4 Cardiac & Pulmonary Exam Cardiac Exam: Normal S1/S2 Heart Sounds Pulmonary Exam: Clear Bilateral Breath Sounds Implantable Cardiac Device Does patient have a Pacemaker or an ICD?: No Airway Exam Known Difficult Airway: No Mallampati Class: 4 Mouth Opening: Narrow (< 3cm) Thyromental Distance: Greater than 3 cm Facial Hair: Full Mckeon Neck Range of Motion: Full ROM Neck Circumference: Normal Teeth Condition: Edentulous ASA Classification ASA Score: ASA 2 Emergency Case?: No NPO Status NPO Status: NPO Clears >2 hours, Solids >8 hours Anesthesia Plan Resuscitation Status: Full Code Anesthesia Technique: General Anesthesia Airway Planned: Natural Airway Monitors Used: Standard Monitors
[2021-12-31 11:58] VITALS: BMI 23.6
--- NOTE | 2021-12-31 12:15 | DI.RAD_ITS ---
Exam(s) XR RETROGRADE IN OR EXAM: XR RETROGRADE IN OR CLINICAL HISTORY: cystoscopy/retrograde. TECHNIQUE: Fluoroscopy was provided for the referring physician for guidance with performing bilater al retrograde procedure. Three hard copy images. COMPARISON: No exams were available for comparison FINDINGS: Hard copy images show contrast injection into both ureters. Please see procedure note for details. Fluoro time: 1 minutes 16 seconds RADIATION DOSE DELIVERED: Ka,r=6.38 mGy
[2021-12-31] MEDS: ceFAZolin 2 GM/50 ML BAG IVPB (12:39)
[2021-12-31] MEDS: Lidocaine 2% Jelly 11 ML SYR (12:59)
[2021-12-31] MEDS: Omnipaque 300 MG/ML 50 ML BTL (13:02)
--- NOTE | 2021-12-31 13:09 | W.PM.DSUDISC ---
Discharge Plan Disposition Patient Disposition: HOME Condition: Stable Discharge Details Reason For Visit: cystoscopy Attending Provider: Adria Saenz Home Meds and New Rx's Prescriptions: No Action tamsulosin 0.4 mg Capsule 0.4 mg PO DAILY 0RF amlodipine 5 mg Tablet 5 mg PO DAILY Qty: 30 0RF tamsulosin 0.4 mg Capsule 0.4 mg PO DAILY Qty: 30 0RF hydrochlorothiazide 25 mg Tablet 25 mg PO QAM Qty: 30 0RF finasteride 5 mg Tablet 5 mg PO DAILY Qty: 30 0RF cephalexin 500 mg capsule 500 mg PO BID Qty: 6 0RF Rx Instructions: First dose on 12/29/21 Discharge Instructions Additional Instructions: pt should expect blood from urethra/blood in urine for up to 48 hours after procedure F/U @ 1 month continue all home medications Activity:: Activity as Tolerated Diet:: As Tolerated Discharge Orders Discharge Orders: Discharge Order (Routine); Ordered 12/31/21 Ordered By: Adria Saenz DS: Diagnosis Discharge Diagnosis (1) Gross hematuria:
--- NOTE | 2021-12-31 13:12 | W.PM.OP ---
Date of service: 12/31/21 Time of Service: 13:12 Operative Note Operative Note PRE-OP DIAGNOSIS: Gross hematuria POST-OP DIAGNOSIS: same hematuria due to enlarged, vascular prostate PROCEDURE: cystoscopy with bilateral retrograde pyelogram SURGEON: Adria Saenz ANESTHESIA TYPE: General:No Airway Refer to Anesthesia Record ESTIMATED BLOOD LOSS: 25 PATHOLOGY: none sent COMPLICATIONS: None Patient was transported to: same day Patient's condition: stable Implants: none Indications: This is an 81-year-old gentleman who recently presented to an [facility] with fevers and gross hematuria. He was diagnosed as having a urinary tract infection. He was given antibiotics and tamsulosin. He did not start either of these medications. He then saw a urologist who performed cystoscopy. The cystoscopy note indicates that there was poor visibility due to patient discomfort. About 24 hours later, the patient presented with signs and symptoms worrisome for sepsis. [facility] was [facility] At our facility, this gentleman had a renal ultrasound which showed no renal mass or hydronephrosis. He was treated with a course of antibiotics. Started on both tamsulosin and finasteride. Was able to void on his own. He presents now for cystoscopy and retrograde pyelogram to complete his hematuria work-up Findings: Enlarged vascular prostate No bladder mass Normal retrograde pyelogram Procedure Description: Patient was brought to the operating room on 12/31/2021. He was given a dose of preoperative IV antibiotics. After successful induction of general anesthesia without intubation, he was placed in the dorsal lithotomy position. His genitalia was prepped and draped. 2% Xylocaine jelly was instilled into the urethra to act as a local anesthetic. A 22 [place] rigid cystoscope was passed through the urethra into the bladder. The urethra and bladder were inspected with the 30 degree lens. The pendulous, bulbar and membranous urethra was all appeared normal with no strictures. The prostatic urethra was enlarged only in the lateral lobes. There is no significant median lobe of the prostate, but the lateral lobes showed increased tissue and increased vascularity. The bladder neck was entered and the bladder mucosa was inspected. Both ureteral orifices were identified. No blood was seen coming from either orifice. Each orifice was cannulated with a 5 Kazakh access catheter. Patient's right side, the catheter had to be passed over a Glidewire to engage the orifice. Retrograde films were obtained by injecting Omnipaque through the access catheter under fluoroscopic guidance. The ureters appeared somewhat tortuous, but no filling defects were seen. Both sides drained promptly on a 5-minute drainage film. The rest of the bladder was then inspected using both a 30 and a 70 degree lens. The bladder was heavily trabeculated with a few small cellules. No large diverticuli were seen. No papillary or nodular bladder lesions were seen. Based on today's examination, I find no evidence of bladder mass. The bladder was emptied and the cystoscope was withdrawn. The patient tolerated this procedure well with no complications. He was taken back to day surgery unit in stable condition.
[2021-12-31 13:15] VITALS: BP 123/55; PULSE 59; RESP 13; TEMP 36.5; O2SAT 100
[2021-12-31 13:20] VITALS: BP 122/58; PULSE 60; RESP 13; TEMP 36.5; O2SAT 98
[2021-12-31 13:25] VITALS: BP 121/59; PULSE 59; RESP 18; TEMP 36.6; O2SAT 98
[2021-12-31 13:36] VITALS: BP 151/71; PULSE 58; RESP 16; TEMP 36; O2SAT 100
[2021-12-31 14:10] VITALS: BP 151/74; PULSE 55; RESP 16; TEMP 36.3; O2SAT 98
--- NOTE | 2021-12-31 22:21 | W.ANESPOSTOP ---
Postoperative Evaluation Date, Time and Location Date Performed: 12/31/21 Time Performed: 14:20 Patient Location: Day Surgery Unit Vital Signs Most Recent Imported Vital Signs: Most Recent Vital Signs Temp Pulse Resp BP Pulse Ox 36.3 C L 55 L 16 151/74 H 98 12/31/21 14:10 12/31/21 14:10 12/31/21 14:10 12/31/21 14:10 12/31/21 14:10 Pain Score Most Recent Pain Score: Most Recent Pain Score Pain Level 0 12/31/21 14:10 Assessment Mental Status: Awake (Alert & Oriented to Patient Baseline) Airway and Respiratory Function: Patent airway with normal (patient baseline) respiratory exam Cardiovascular Function: Hemodynamically Stable Hydration Status: Adequately Hydrated Nausea & Vomiting: No Nausea or Vomiting Pain: Pt. Denies Any Pain Peripheral Nerve Block: Patient did not receive a nerve block
== END 2021-12-31 14:32 | disposition home or self-care (01) ==
PROVIDERS: Visit Provider Urology
PROC: (CPT 74450; principal; 2021-12-31 09:45)
DX: R31.0 Gross hematuria (principal); N40.0 Benign prostatic hyperplasia without lower urinary tract symptoms
CPT/HCPCS: 52005; 74420; J0690; J2001; J2704; Q9967

== ENCOUNTER → 2022-03-05 18:47 | Outpatient (CLI) | payer MEDICARE, BC, SELFPAY | PROVIDERS: Visit Provider Physician Assistant ==

== ENCOUNTER 2023-07-07 20:41 | Emergency (ER) | payer MEDICARE, BC, SELFPAY ==
[2023-07-07 20:52] VITALS: PULSE 90; RESP 14; TEMP 37.6; O2SAT 99
[2023-07-07 21:08] LABS: Bilirubin Negative (Negative); Blood Trace-intact (Negative); Clarity Clear (Clear); Glucose Negative (Negative); Ketones Negative (Negative); Leukocyte Esterase Negative (Negative); Nitrite Negative (Negative); Urobilinogen 0.2 mg/dL (Up to 0.2)
[2023-07-07 21:19] LABS: WBC 0-2 HPF (0-5)
[2023-07-07 21:20] LABS: Bacteria Negative HPF (Negative); C & S Indicated? No; Crystals Negative HPF (Negative); Epithelial Cells Negative HPF (Negative); Mucus Negative (Negative)
--- NOTE | 2023-07-07 22:00 | ED.GENADUL_ITS ---
Discharge Plan Disposition Patient Disposition: Home Discharge Details Clinical Impression: Urinary retention, Hypertension Primary Care Provider: Unknown,Unknown ED Provider: Mango Carranza Home Meds and New Rx's Prescriptions: Continued finasteride 5 mg Tablet 5 mg PO DAILY Qty: 30 0RF Patient Comments: pt stated not taking amlodipine 5 mg Tablet 5 mg PO DAILY Qty: 30 0RF hydrochlorothiazide 25 mg Tablet 25 mg PO QAM Qty: 30 0RF Changed tamsulosin 0.4 mg Capsule 0.4 mg PO HS Qty: 30 0RF No Action tamsulosin 0.4 mg Capsule 0.4 mg PO DAILY Patient Comments: pt stated not taking cephalexin 500 mg capsule 500 mg PO BID Qty: 6 0RF Patient Comments: pt stated not taking Rx Instructions: First dose on 12/29/21 Discharge Instructions Instructions: Urinary Retention in Men (ED), Walton Catheter Placement and Care (ED), Hypertension (ED) Additional Instructions: At this time urinary urinary symptoms seem to be secondary to your prostate enlargement causing outflow obstruction. We have placed a Walton catheter to help drain your bladder and you will need to follow-up with urology for reassessment. We have restarted your tamsulosin/Flomax as this will help you with your urinary symptoms. Please take nightly before bed unless changed by urologist or primary care provider. It was noted in the past that you were prescribed blood pressure medication. You have stated that you have not been taking these and so these medications were represcribed due to your significantly elevated blood pressure noted in the emergency department. You have been placed on a referral to establish new primary care provider. While waiting for that appointment if you have any new or worsening symptoms of chest pain headache loss of consciousness or neurological symptoms return immediately to the emergency department given how elevated your blood pressure was. Referrals: [facility] [Provider Group] - 1 week (Call the office tomorrow afternoon for arrangement of follow-up appointment) Medical Decision Making Patient presenting to the emergency department for chief complaint of urinary frequency and urgency. Patient states this started today around noon and has no t let up since. Patient denies any pain discomfort or other symptoms. Patient denies any known past medical history but upon my review is patient's max past medical history is that he has a history of hypertension but more pertinent is urinary retention and BPH with urinary obstruction. Physical exam is unremarkable patient has no tenderness or discomfort. When I questioned patient about his BPH he stated that he was not aware of this and denies take any medication for this. Patient on medical history does have prescription for tamsulosin. Will order urinalysis and bladder scan. Reviewed patient's urinalysis that showed trace intact blood otherwise unremarkable and no signs of infection. staff trainer did inform me that initial read on bladder scanner was greater than 999. Given patient's medical history I doubt that patient has renal calculi or obstruction but this is more likely his BPH given that it is pain-free no other symptoms noted. Discussed with patient risk versus benefit difficult Walton catheter placement and he was agreeable to placement. Nursing and select banker staff attempted Walton catheter placement and attempted with a 16 and 20-fr coud? and were not able to place catheter. I was able to place a 12 [place] catheter and was able to get appropriate urine output that was clear and no signs of clotting noted. Patient tolerated procedure as expected and had greater than 400 mL out. Also of notation patient had significant elevated blood pressure. Patient states that he has not been taking his blood pressure medications but is agreeable to restarting these. I restarted his previously prescribed medications. Patient states he no longer has a primary care provider so he was placed on care management list to reestablish primary care provider for recheck of his blood pressure and patient was also referred to urology for recheck of his urinary obstruction. After discussion of diagnosis and plan of care patient has no further needs, questions, or concerns and states clear understanding to return to the emergency department for any worsening symptoms. This documentation was generated using [email or web address] dictation system, please disregard any oddities of phrase or misspellings. Lab Data Lab results reviewed: Yes I reviewed the patient's lab results. HPI General Mode of arrival: ambulatory . Date/Time Provider Initiated Documentation: 07/07/23 20:58 . Limitations to Documentation: no limitations . Information obtained by: patient and RN notes reviewed . History of Present Illness 82 year old M presents to the emergency department with the chief complaint of Urinary frequency, Patient started experiencing this hour(s) (8) Patient notes no other symptoms.. Patient did receive the following treatments prior to arrival, none Related Data Home Medications Medication Instructions Recorded Confirmed tamsulosin 0.4 mg capsule 0.4 mg PO DAILY 12/21/21 12/21/21 cephalexin 500 mg capsule 500 mg PO BID #6 caps 12/28/21 finasteride 5 mg tablet 5 mg PO DAILY #30 tabs 12/28/21 amlodipine 5 mg tablet 5 mg PO DAILY #30 tabs 07/07/23 hydrochlorothiazide 25 mg tablet 25 mg PO QAM #30 tabs 07/07/23 tamsulosin 0.4 mg capsule 0.4 mg PO HS #30 caps 07/07/23 Previous Rx's Medication Instructions Recorded cephalexin 500 mg capsule 500 mg PO BID #6 caps 12/28/21 finasteride 5 mg tablet 5 mg PO DAILY #30 tabs 12/28/21 amlodipine 5 mg tablet 5 mg PO DAILY #30 tabs 07/07/23 hydrochlorothiazide 25 mg tablet 25 mg PO QAM #30 tabs 07/07/23 tamsulosin 0.4 mg capsule 0.4 mg PO HS #30 caps 07/07/23 Allergies Allergy/AdvReac Type Severity Reaction Status Date / Time No Known Allergies Allergy Unverified 07/07/23 21:06 General Stated Complaint: Urinary NATACHA: 3 Review of Systems Constitutional Constitutional: Denies chills, Denies fever(s) and Denies malaise Gastrointestinal Gastrointestinal: Denies abdominal pain and Denies nausea Genitourinary Genitourinary: Reports as per HPI, Denies hematuria, Reports oliguria, Reports difficulty urinating, Denies dysuria, Denies flank pain, Reports urinary frequency, Denies urinary hesitancy, Denies urinary incontinence and Reports u rinary urgency Musculoskeletal Musculoskeletal: Denies back pain PFSH All Active Problems (Updated 07/07/23 @ 23:10 by Mango Carranza NP) Hypertension (Chronic) Hypertension (Chronic) Urinary retention (Acute) BPH loc w urin obs/LUTS (Acute) Medical History 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 Gross hematuria Surgical History History of local excision of skin lesion (~04/11/21) Left shoulder, basal cell Family History Brother , secondary to heart attack Heart disease Social History Smoking/Tobacco Use Status: Never Smoking risk assessment performed?: Yes Alcohol Intake: former Drug use: Never Substance use type: does not use Household members: none current occupation: Retired from [id number], from [employer] [phone] Do you feel safe at home: Yes Do you feel safe in your relationship?: Yes Exam Const General: cooperative and no acute distress Orientation: alert, awake and oriented x3 Resp Effort & Inspection: normal respiratory effort and able to speak in complete sentences Auscultation: clear to auscultation bilaterally Cardio Rate: regular rate Rhythm: regular rhythm Heart Sounds: S1 normal and S2 normal GI Palpation: nontender Neuro General: patient alert, patient awake and patient oriented x3 Extrem General: capillary refill normal Course Vital Signs Vital signs: Vital Signs Temperature 37.6 C H 07/07/23 20:52 Pulse 90 07/07/23 20:52 Respiratory Rate 14 07/07/23 20:52 Pulse Oximetry 99 07/07/23 20:52 Temperature 37.6 C H 07/07/23 20:52 Temperature Source Oral 07/07/23 20:52 Pulse 90 07/07/23 20:52 Respiratory Rate 14 07/07/23 20:52 Respiratory Effort Normal, Non-Labored 07/07/23 21:00 Pulse Oximetry 99 07/07/23 20:52 Oxygen Delivery Method Room Air 07/07/23 20:52 Oxygen Flow Rate 0 07/07/23 20:52 Pain Level 0 07/07/23 21:01 Lab/Test Results Lab/Test Results: Laboratory Tests Range/Units 07/07/23 21:00 Urine Color (Yellow) Yellow Urine Clarity (Clear) Clear Urine pH (5-8) 7.0 Ur Specific [place] (1.005-1.025) 1.020 Urine Protein (Negative) mg/dL Negative Urine Ketones (Negative) mg/dL Negative Urine Blood (Negative) Trace-intact H Urine Nitrite (Negative) Negative Urine Bilirubin (Negative) Negative Urine Urobilinogen (Up to 0.2) mg/dL 0.2 Ur Leukocyte Esterase (Negative) Negative Urine RBC (0-2) HPF 3-5 H Urine WBC (0-5) HPF 0-2 Ur Epithelial Cells (Negative) HPF Negative Urine Crystals (Negative) HPF Negative Urine Bacteria (Negative) HPF Negative Urine Mucus (Negative) Negative Ur Culture Indicated? No Urine Glucose (Negative) mg/dL Negative
[2023-07-07 23:08] VITALS: BP 215/93; PULSE 70; RESP 14; O2SAT 99
[2023-07-07 23:12] VITALS: BP 215/93; PULSE 70; RESP 16; O2SAT 99
--- NOTE | 2023-07-07 23:35 | NUR.NOTE ---
Referral faxed to [facility] to follow up this week regarding catheter placement. Referral submitted to care management for patient establish care with a new primary care provider regarding rechecking blood pressure. Patient lives closer to [facility] and he doesn't have a preference if he sees a primary care provider in [place] or [place].
== END 2023-07-07 23:51 | disposition home or self-care (01) ==
PROVIDERS: Emergency Provider Nurse Practitioner Family
DX: R33.9 Retention of urine, unspecified (principal); I10 Essential (primary) hypertension
CPT/HCPCS: 36415; 51702; 99283; 81003; 81015

== ENCOUNTER 2023-07-09 10:17 | Emergency (ER) | payer MEDICARE, BC, SELFPAY ==
[2023-07-09 10:23] VITALS: BP 148/122; PULSE 90; RESP 18; TEMP 36.9; O2SAT 98
--- NOTE | 2023-07-09 10:33 | ED.GENADUL_ITS ---
Discharge Plan Disposition Patient Disposition: Home Condition: Stable Discharge Details Clinical Impression: Acute UTI Primary Care Provider: Unknown,Unknown ED Provider: Dedrick Jarvis Home Meds and New Rx's Prescriptions: New levofloxacin 750 mg tablet 750 mg PO DAILY Qty: 5 0RF Continued tamsulosin 0.4 mg Capsule 0.4 mg PO DAILY Patient Comments: pt stated not taking finasteride 5 mg Tablet 5 mg PO DAILY Qty: 30 0RF Patient Comments: pt stated not taking cephalexin 500 mg capsule 500 mg PO BID Qty: 6 0RF Patient Comments: pt stated not taking Rx Instructions: First dose on 12/29/21 amlodipine 5 mg Tablet 5 mg PO DAILY Qty: 30 0RF tamsulosin 0.4 mg Capsule 0.4 mg PO HS Qty: 30 0RF hydrochlorothiazide 25 mg Tablet 25 mg PO QAM Qty: 30 0RF Discharge Instructions Instructions: Urinary Tract Infection in Men (ED) Additional Instructions: follow up with urology and your primary care provider if you feel more ill, have severe abdominal pain or fevers return to the emergency department Medical Decision Making 82 yo male with hx of bph who had a manuel placed 2 days ago for urinary retention comes in with blood in the manuel. He states he thought he was supposed to remove it today so tried pulling the catheter out but was unable to. He denies fevers, chills, back pain, abdomen pain,n/v. He has a manuel that appears penitentiary out of his penis with blood around the meatus. No abdominal tenderness. He is caox4 speaking clearly. Will have nursing remove the manuel and see if he's able to urinate and if not will have nursing place another manuel ua consistent with uti, he was able to empty his bladder, urine is bloody. Discussed with him replacing his manuel but he declines to have this done at this time and has decision making capacity. HE understands he will need to return if he has suprapubic pain, will have him keep his appointment with urology as well. Differential Diagnosis Differential Diagnosis: manuel catheter complication HPI General Mode of arrival: ambulatory . Date/Time Provider Initiated Documentation: 07/09/23 10:20 . Limitations to Documentation: no limitations . Information obtained by: patient . History of Present Illness 82 year old M presents to the emergency department with the chief complaint of tried pulling catheter out, described as moderate, Patient started experiencing this hour(s) (2) and it has been constant. No relieving factors improve symptom(s), No exacerbating factors reported . Patient notes no other symptoms.. Patient did receive the following treatments prior to arrival, none Related Data Home Medications Medication Instructions Recorded Confirmed tamsulosin 0.4 mg capsule 0.4 mg PO DAILY 12/21/21 07/09/23 cephalexin 500 mg capsule 500 mg PO BID #6 caps 12/28/21 finasteride 5 mg tablet 5 mg PO DAILY #30 tabs 12/28/21 amlodipine 5 mg tablet 5 mg PO DAILY #30 tabs 07/07/23 hydrochlorothiazide 25 mg tablet 25 mg PO QAM #30 tabs 07/07/23 tamsulosin 0.4 mg capsule 0.4 mg PO HS #30 caps 07/07/23 07/09/23 levofloxacin 750 mg tablet 750 mg PO DAILY #5 tabs 07/09/23 Previous Rx's Medication Instructions Recorded cephalexin 500 mg capsule 500 mg PO BID #6 caps 12/28/21 finasteride 5 mg tablet 5 mg PO DAILY #30 tabs 12/28/21 amlodipine 5 mg tablet 5 mg PO DAILY #30 tabs 07/07/23 hydrochlorothiazide 25 mg tablet 25 mg PO QAM #30 tabs 07/07/23 tamsulosin 0.4 mg capsule 0.4 mg PO HS #30 caps 07/07/23 levofloxacin 750 mg tablet 750 mg PO DAILY #5 tabs 07/09/23 Allergies Allergy/AdvReac Type Severity Reaction Status Date / Time No Known Allergies Allergy Unverified 07/09/23 10:37 General Stated Complaint: Urinary NATACHA: 3 Review of Systems All systems reviewed & are unremarkable except as noted in HPI and below Constitutional Constitutional: Denies chills, Denies fever(s) and Denies weakness Cardiovascular Cardiovascular: Denies chest pain and Denies dyspnea Respiratory Respiratory: Denies cough and Denies dyspnea Gastrointestinal Gastrointestinal: Denies abdominal pain, Denies nausea and Denies vomiting Musculoskeletal Musculoskeletal: Denies joint swelling Neurologic Neurologic: Denies weakness PFSH All Active Problems (Updated 07/09/23 @ 11:51 by Dedrick Jarvis MD) Hypertension (Chronic) Acute UTI (Acute) Hypertension (Chronic) Urinary retention (Acute) BPH loc w urin obs/LUTS (Acute) Medical History 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 Gross hematuria Surgical History History of local excision of skin lesion (~04/11/21) Left shoulder, basal cell Family History Brother , secondary to heart attack Heart disease Social History Smoking/Tobacco Use Status: Never Smoking risk assessment performed?: Yes Alcohol Intake: former Drug use: Never Substance use type: does not use Household members: none current occupation: Retired from [employer], from [id number] Do you feel safe at home: Yes Do you feel safe in your relationship?: Yes Exam Const General: no acute distress Orientation: alert HENMT Head: normal to inspection Ears: external ears normal General nose exam: external nose normal Mouth: moist mucous membranes Eyes General: appearance normal, both eyes and all related structures Neck Neck: normal visual inspection Resp Effort & Inspection: normal respiratory effort and able to speak in complete sentences Cardio Rate: regular rate GI Palpation: soft and nontender Skin General skin exam: no rashes or lesions noted Neuro General: patient alert and patient oriented x3 Extrem General: normal to inspection Psych Mental Status: mental status grossly normal Course Vital Signs Vital signs: Vital Signs Temperature 36.9 C 07/09/23 10:23 Pulse 90 07/09/23 10:23 Respiratory Rate 18 07/09/23 10:23 Blood Pressure 148/122 H 07/09/23 10:23 Pulse Oximetry 98 07/09/23 10:23 Temperature 36.9 C 07/09/23 10:23 Temperature Source Skin 07/09/23 10:23 Pulse 90 07/09/23 10:23 Respiratory Rate 18 07/09/23 10:23 Respiratory Effort Normal 07/09/23 10:26 Blood Pressure 148/122 H 07/09/23 10:23 Pulse Oximetry 98 07/09/23 10:23 Oxygen Delivery Method Room Air 07/09/23 10:23 Oxygen Flow Rate 0 07/09/23 10:23
[2023-07-09 11:08] LABS: Bilirubin Moderate (Negative); Blood Large (Negative); Clarity Turbid (Clear); Glucose 100 mg/dL (Negative); Ketones 15 mg/dL (Negative); Leukocyte Esterase Large (Negative); Nitrite Positive (Negative); Specific Gravity >= 1.030 (1.005-1.025); pH 5.5 (5-8)
[2023-07-09 11:12] LABS: C & S Indicated? Yes; RBC >50 HPF (0-2)
[2023-07-09] MEDS: levoFLOXacin 500 MG, levoFLOXacin 250 MG 750 MG PO (11:25)
== END 2023-07-09 11:57 | disposition home or self-care (01) ==
PROVIDERS: Emergency Provider Emergency Medicine
DX: R31.9 Hematuria, unspecified (principal); N39.0 Urinary tract infection, site not specified; N40.1 Benign prostatic hyperplasia with lower urinary tract symptoms; R33.8 Other retention of urine
CPT/HCPCS: 99283; 81003; 81015; 87086; 99284